=== PATIENT | female | born 1995 | race Caucasian/White ===

== ENCOUNTER 2018-02-02 14:31 | Emergency (ER) | payer OTHER, SELFPAY ==
[2018-02-02 14:38] VITALS: BP 117/69; PULSE 117; RESP 20; TEMP 36.9; O2SAT 99
--- NOTE | 2018-02-02 14:43 | DI.RAD.S_ITS ---
PROCEDURE: XR WRIST LT MIN 3V INDICATIONS: left wrist pain after fall TECHNIQUE: 4 views of the wrist were acquired. COMPARISON: [facility], CR, XR HAND LT MIN 3V, 02/02/2018, 14:25. FINDINGS: Bones: No fractures or dislocations. No suspicious bony lesions. Scaphoid view: No trauma. Soft tissues: No suspicious soft tissue calcifications. IMPRESSION: No trauma found. Incidental load is made of a bone island in the distal ulna, distal subarticular marrow space. No followup necessary. Dictated by: Mark Smart M.D. on 02/02/2018 at 15:01 Approved by: Mark Smart M.D. on 02/02/2018 at 15:02
--- NOTE | 2018-02-02 14:44 | DI.RAD.S_ITS ---
PROCEDURE: XR HAND LT MIN 3V INDICATIONS: left hand pain after fall TECHNIQUE: 3 views of the hand(s) acquired. COMPARISON: [facility], CR, XR WRIST LT MIN 3V, 02/02/2018, 14:25. FINDINGS: Bones: No fractures or dislocations. Carpal bones are normally aligned. No suspicious bony lesions. Soft tissues: No suspicious soft tissue calcifications. IMPRESSION: No trauma found. Distal ulna small bone island incidentally noted. Dictated by: Mark Smart M.D. on 02/02/2018 at 15:02 Approved by: Mark Smart M.D. on 02/02/2018 at 15:02
--- NOTE | 2018-02-02 14:50 | ED_ITS ---
HPI - Extremity Injury (Upper) <Mae Foley PA-C - Last Filed: 02/02/18 18:19> General Chief Complaint: Extremity Injury, Upper Stated Complaint: CRUSH INJURY LEFT HAND Time Seen by Provider: 02/02/18 14:49 Source: patient Mode of arrival: ambulatory History of Present Illness HPI narrative: This 22-year-old female states that she crushed her left hand near the thumb while moving a heavy sofa. It dropped onto the hand which got crushed between the metal leg and floor. She denies other injuries. She states that she can move the thumb, but it is very painful. She is able to move the rest of her fingers and her wrist. She denies any weakness or paresthesia. She does not remember the date of her last tetanus vaccine. Related Data Home Medications Medication Instructions Recorded Confirmed vit-iron fum-folic ac 1 cap PO QDAY #0 09/03/17 [Mynatal] Previous Rx's Medication Instructions Recorded hydrocodone-acetaminophen [Turin] 1 tab PO Q6HP PRN #10 tab 03/30/16 cephalexin [Keflex] 500 mg PO QID #28 cap 08/23/17 metronidazole 500 mg PO Q12H #14 tab 09/03/17 sulfamethoxazole-trimethoprim 1 tab PO BID #14 tab 09/03/17 clindamycin HCl 300 mg PO QID #28 cap 03/18/18 Allergies Allergy/AdvReac Type Severity Reaction Status Date / Time peanut [PEANUT] Allergy Severe ALLERGY TO Verified 03/18/18 12:28 PEANUT BUTTER: HIVES, SOB epinephrine [EPINEPHRINE] Allergy Mild HIVES AT Verified 03/18/18 12:28 EPI-PEN INJECTION AREA darrius [DARRIUS] Allergy Unknown Verified 03/18/18 12:28 tree nut [TREE NUT] Allergy Unknown Verified 03/18/18 12:28 COCONUT Allergy Unknown Uncoded 03/18/18 12:28 TROPICAL FRUITS Allergy Unknown Uncoded 03/18/18 12:28 Review of Systems <Mae Foley PA-C - Last Filed: 02/02/18 18:19> Review of Systems All systems reviewed & are unremarkable except as noted in HPI and below Exam <Mae Foley PA-C - Last Filed: 02/02/18 18:19> Narrative Exam Narrative: GENERAL APPEARANCE: Patient sitting comfortably, in no distress. LUNGS: Clear to auscultation bilaterally. HEART: Rate and rhythm regular without murmur, normal S1 and S2, no S3 or S4. MUSCULOSKELETAL: Left anterior thumb and thenar eminence there is some faint ecchymoses. There is no joint effusion. She is tender over the thenar eminence , and thumb from the MCP to the PIP joint. She is also a little bit tender over the left 2nd and 3rd metacarpals, no tenderness distally. She has full a ROM of the 2nd through 4th fingers with strength intact in all fernandes against resistance. Range of motion of the thumb is limited secondary to tenderness, distal strength appears intact. No tenderness over the wrist joint. NEUROVASCULAR: Finger tips are warm and pink on the left with brisk cap refill and radial and ulnar pulses 2+, sensation is grossly intact Initial Vital Signs Initial Vital Signs: Vital Signs Temperature 98.4 F 02/02/18 14:38 Pulse Rate 117 H 02/02/18 14:38 Respiratory Rate 20 02/02/18 14:38 Blood Pressure 117/69 02/02/18 14:38 Pulse Oximetry 99 02/02/18 14:38 <Juan Carlos Anders MD - Last Filed: 03/19/18 08:14> Initial Vital Signs Initial Vital Signs: Vital Signs Temperature 98.4 F 02/02/18 14:38 Pulse Rate 117 H 02/02/18 14:38 Respiratory Rate 20 02/02/18 14:38 Blood Pressure 117/69 02/02/18 14:38 Pulse Oximetry 99 02/02/18 14:38 Course <Mae Foley PA-C - Last Filed: 02/02/18 18:19> Orders Ordered: Discontinued Medications Acetaminophen (Tylenol) 650 mg PO NOW ONE Stop: 02/02/18 15:03 Last Admin: 02/02/18 15:05 Dose: 650 mg Diphtheria/Tetanus/Acell Pertussis (Adacel) 0.5 ml IM .ONCE ONE Stop: 02/02/18 15:27 Last Admin: 02/02/18 15:27 Dose: 0.5 ml Thumb/wrist immobilizer placed Vital Signs - 8 hr 02/02/18 14:38 Temperature 98.4 F Pulse Rate 117 H Respiratory Rate 20 Blood Pressure 117/69 Pulse Oximetry 99 <Juan Carlos Anders MD - Last Filed: 03/19/18 08:14> Orders Ordered: Discontinued Medications Acetaminophen (Tylenol) 650 mg PO NOW ONE Stop: 02/02/18 15:03 Last Admin: 02/02/18 15:05 Dose: 650 mg Diphtheria/Tetanus/Acell Pertussis (Adacel) 0.5 ml IM .ONCE ONE Stop: 02/02/18 15:27 Last Admin: 02/02/18 15:27 Dose: 0.5 ml Vital Signs - 8 hr 02/02/18 14:38 Temperature 98.4 F Pulse Rate 117 H Respiratory Rate 20 Blood Pressure 117/69 Pulse Oximetry 99 MDM - Extremity Injury (Upper) <Mae Foley PA-C - Last Filed: 02/02/18 18:19> Imaging Data extremity: Radiologist's impression: [address] [address] XRay Report Signed Patient: Roseanne Benson MR#: [id number] : 1995 Acct:[id number] Age/Sex: 22 / F Date of Service: 02/02/18 Loc: ED Accession Number: [id number] Procedure: XR wrist LT min 3V Ordering Provider: Juan Carlos Anders M.D. PROCEDURE: XR WRIST LT MIN 3V INDICATIONS: left wrist pain after fall TECHNIQUE: 4 views of the wrist were acquired. COMPARISON: [facility], [facility], XR HAND LT MIN 3V, 02/02/2018, 14:25. FINDINGS: Bones: No fractures or dislocations. No suspicious bony lesions. Scaphoid view: No trauma. Soft tissues: No suspicious soft tissue calcifications. IMPRESSION: No trauma found. Incidental load is made of a bone island in the distal ulna, distal subarticular marrow space. No followup necessary. Dictated by: Mark Smart M.D. on 02/02/2018 at 15:01 Approved by: Mark Smart M.D. on 02/02/2018 at 15:02 View Report History Print [address] [address] XRay Report Signed Patient: Roseanne Benson MR#: [id number] : 1995 Acct:[id number] Age/Sex: 22 / F Date of Service: 02/02/18 Loc: ED Accession Number: [id number] Procedure: XR hand LT min 3V Ordering Provider: Juan Carlos Anders M.D. PROCEDURE: XR HAND LT MIN 3V INDICATIONS: left hand pain after fall TECHNIQUE: 3 views of the hand(s) acquired. COMPARISON: [facility], CR, XR WRIST LT MIN 3V, 02/02/2018, 14:25. FINDINGS: Bones: No fractures or dislocations. Carpal bones are normally aligned. No suspicious bony lesions. Soft tissues: No suspicious soft tissue calcifications. IMPRESSION: No trauma found. Distal ulna small bone island incidentally noted. Dictated by: Mark Smart M.D. on 02/02/2018 at 15:02 Approved by: Mark Smart M.D. on 02/02/2018 at 15:02 Discharge Plan Departure Patient Disposition: Home, Self-Care Clinical Impression: Crushing injury of hand, left Discharge Date/Time: 02/02/18 15:37 Interventions: ED Discharge Assessment Last Done: 02/02/18 15:30 Instructions: DI for Hand Injury Activity Restrictions/Additional Instructions: Wear the splint 23/03 for now to help rest the sore area, and protect it. You can take it off in a few days and try some gentle range of motion, but keep it on when you are active at least, or if you still have pain. Use Tylenol as needed for pain. You should follow up with your PCP for recheck in the next week as you may need repeat x-rays if pain is not improving. Please return or see your PCP if any new or acutely worsening symptoms Prescriptions: No Action hydrocodone-acetaminophen [Turin] 5 MG/325 MG tablet 1 tab PO Q6HP PRNQty: 10 RF: 0 cephalexin [Keflex] 500 MG capsule 500 mg PO QID Qty: 28 RF: 0 vit-iron fum-folic ac [Mynatal] 1 EACH capsule 1 cap PO QDAY Qty: 0 RF: 0 metronidazole 500 MG tablet 500 mg PO Q12H Qty: 14 RF: 0 sulfamethoxazole-trimethoprim 800 MG/160 MG tablet 1 tab PO BID Qty: 14 RF: 0 clindamycin HCl 300 mg capsule 300 mg PO QID Qty: 28 RF: 0 Referrals: Natali Medrano DO [Non-Staff] - <Juan Carlos Anders MD - Last Filed: 03/19/18 08:14> Sign Out Provider Sign Out Attestation: The PA/LATH TIER functioned independently for the care of this pt, I was available, but not asked to participate in care. I am unable to determine appropriateness of management without personally examining the pt.
[2018-02-02] MEDS: ACETAMINOPHEN 325 MG TABLET 650 MG PO (15:05)
[2018-02-02] MEDS: TET,DIPH,PERTUSS(ACELL),VAC/PF 0.5 ML SYRINGE IM (15:27)
== END 2018-02-02 15:37 | disposition home or self-care (01) ==
PROVIDERS: Emergency Provider Internal Medicine
DX: S67.22XA Crushing injury of left hand, initial encounter (principal); W23.0XXA Caught, crushed, jammed, or pinched between moving objects, initial encounter
CPT/HCPCS: 73110; 73130; 90471; 99282; 99283; 90715

== ENCOUNTER 2018-03-18 12:23 | Emergency (ER) | payer OTHER, SELFPAY ==
[2018-03-18 12:28] VITALS: BP 133/75; PULSE 49; RESP 15; TEMP 36.4; O2SAT 99; BMI 25.0
--- NOTE | 2018-03-18 12:32 | ED_ITS ---
HPI - Extremity Injury (Upper) <KURTIS Miles - Last Filed: 03/18/18 22:40> General Chief Complaint: Extremity Injury, Upper Stated Complaint: LEFT HAND INDEX FINGER SWELLING AND SPREADING. Time Seen by Provider: 03/18/18 12:31 History of Present Illness HPI narrative: 22-year-old female here for complaint of having swelling to her left index finger nail margin for the last couple of days and noticed earlier today that with erythema that is tracking up her dorsal left forearm. She denies any trauma to the area. She denies any purulent drainage. No fevers no chills. She states she does not chew her nails. She does have a history of having a ingrown fingernails in the past. She denies any other concerns or complaints at this time. Related Data Home Medications Medication Instructions Recorded Confirmed vit-iron fum-folic ac 1 cap PO QDAY #0 09/03/17 [Mynatal] Previous Rx's Medication Instructions Recorded hydrocodone-acetaminophen [Clinton] 1 tab PO Q6HP PRN #10 tab 03/30/16 cephalexin [Keflex] 500 mg PO QID #28 cap 08/23/17 metronidazole 500 mg PO Q12H #14 tab 09/03/17 sulfamethoxazole-trimethoprim 1 tab PO BID #14 tab 09/03/17 clindamycin HCl 300 mg PO QID #28 cap 03/18/18 Allergies Allergy/AdvReac Type Severity Reaction Status Date / Time peanut [PEANUT] Allergy Severe ALLERGY TO Verified 03/18/18 12:28 PEANUT BUTTER: HIVES, SOB epinephrine [EPINEPHRINE] Allergy Mild HIVES AT Verified 03/18/18 12:28 EPI-PEN INJECTION AREA darrius [DARRIUS] Allergy Unknown Verified 03/18/18 12:28 tree nut [TREE NUT] Allergy Unknown Verified 03/18/18 12:28 COCONUT Allergy Unknown Uncoded 03/18/18 12:28 TROPICAL FRUITS Allergy Unknown Uncoded 03/18/18 12:28 Review of Systems <KURTIS Miles - Last Filed: 03/18/18 22:40> Constitutional Denies chills, Denies fever(s), Denies lethargy and Denies weakness Eyes Denies change in vision, Denies eye discharge, Denies irritation and Denies loss of vision ENT Ears, Nose, Mouth, and Throat: Denies change in voice, Denies neck pain and Denies sore throat Cardiovascular Denies chest pain, Denies irregular heart rhythm, Denies lightheadedness, Denies palpitations, Denies dyspnea, Denies dyspnea on exertion and Denies orthopnea Respiratory Denies cough, Denies dyspnea, Denies dyspnea on exertion and Denies wheezing Gastrointestinal Gastrointestinal: Denies abdominal pain, Denies change in bowel habits, Denies diarrhea, Denies nausea and Denies vomiting Genitourinary Denies hematuria, Denies flank pain, Denies urinary incontinence and Denies urinary urgency Musculoskeletal Denies neck pain Comments: Swelling and erythema to the left index finger nail margin with erythema tracking up her left hand and left forearm Integumentary/Breasts Denies pruritus, Denies erythema, Denies rash and Denies wounds Neurologic Denies confusion, Denies loss of vision and Denies weakness Psychiatric Denies anxiety, Denies confusion, Denies depression, Denies homicidal ideation and Denies suicidal ideation Endocrine Denies palpitations Hematologic/Lymphatic Denies easy bruising Allergic/Immunologic Denies wheezing Exam <KURTIS Miles - Last Filed: 03/18/18 22:40> Initial Vital Signs Initial Vital Signs: Vital Signs Temperature 97.5 F L 03/18/18 12:28 Pulse Rate 49 L 03/18/18 12:28 Respiratory Rate 15 03/18/18 12:28 Blood Pressure 133/75 H 03/18/18 12:28 Pulse Oximetry 99 03/18/18 12:28 Const General: cooperative and well developed Nutritional Appearance: well nourished Orientation: alert, awake, oriented x3 and not confused [facility] Mouth: oral mucosae normal and moist mucous membranes Eyes Conjunctivae: conjunctivae normal Sclera: sclerae normal Pupils: PERRL EOM: EOM intact bilaterally Resp Effort & Inspection: normal respiratory effort, able to speak in complete sentences, no respiratory distress and no use of accessory muscles Auscultation: clear to auscultation bilaterally, no rales, no rhonchi and no wheezes Cardio Rate: regular rate Rhythm: regular rhythm Heart Sounds: no click, no gallops, no murmurs and no rubs Pulses: normal peripheral pulses Skin General: No jaundice and No petechiae Neuro General: alert, oriented x3, gait normal and no focal motor deficits Speech: speech normal Extrem Other: Swelling and erythema to the distal index finger around the nail margin. Small area of fluctuance is noted to the ulnar aspect nail margin. Patient has erythema that is tracking up her left hand and upper left forearm. Distal sensation is intact. Full range of motion. Distal cap refill less than 2 sec. <Janina Quinteros DO - Last Filed: 03/22/18 05:51> Initial Vital Signs Initial Vital Signs: Vital Signs Temperature 97.5 F L 03/18/18 12:28 Pulse Rate 49 L 03/18/18 12:28 Respiratory Rate 15 03/18/18 12:28 Blood Pressure 133/75 H 03/18/18 12:28 Pulse Oximetry 99 03/18/18 12:28 Procedures <KURTIS Miles - Last Filed: 03/18/18 22:40> Abscess I/D Site: hand Side (if applicable): left Amount of anesthesia used (mL): 2 Technique: needle aspiration Amount of fluid expressed (mL): 0.5 Irrigation: No Packing used?: none Course <KURTIS Miles - Last Filed: 03/18/18 22:40> Vital Signs - 8 hr 03/18/18 12:28 Temperature 97.5 F L Pulse Rate 49 L Respiratory Rate 15 Blood Pressure 133/75 H Pulse Oximetry 99 <Janina Quinteros DO - Last Filed: 03/22/18 05:51> Vital Signs - 8 hr 03/18/18 12:28 Temperature 97.5 F L Pulse Rate 49 L Respiratory Rate 15 Blood Pressure 133/75 H Pulse Oximetry 99 MDM - Extremity Injury (Upper) <KURTIS Miles - Last Filed: 03/18/18 22:40> MDM Narrative Medical decision making narrative: Paronychia to the left index finger with secondary cellulitis. Left index finger local anesthesia provided by digital block. Needle aspiration was completed to fluctuant area along the nail margin with small amount of purulent material expressed. She is covered with clindamycin. Close follow up with primary care provider tomorrow for re- evaluation to ensure is improving. [id number] Tylenol and Motrin as needed for any discomfort. For any worsening symptoms return to the emergency room. Discharge Plan Departure Patient Disposition: Home, Self-Care Clinical Impression: Paronychia of left index finger, Cellulitis of arm, left Discharge Date/Time: 03/18/18 13:54 Interventions: ED Discharge Assessment Last Done: 03/18/18 13:54 Instructions: DI for Cellulitis -- Adult, DI for Paronychia Activity Restrictions/Additional Instructions: Infection to the left nail area was incised with a needle to drain the purulent material. Redness going down the left arm appears as cellulitis. You have been placed on an antibiotic to cover for infection use as directed. You need to follow up with primary care provider tomorrow for re-evaluation to ensure is improving and not worsening. Use [id number] Tylenol and Motrin as needed for any discomfort. For any worsening symptoms return to the emergency room. Prescriptions: New clindamycin HCl 300 mg capsule 300 mg PO QID Qty: 28 RF: 0 No Action hydrocodone-acetaminophen [Clinton] 5 MG/325 MG tablet 1 tab PO Q6HP PRNQty: 10 RF: 0 cephalexin [Keflex] 500 MG capsule 500 mg PO QID Qty: 28 RF: 0 vit-iron fum-folic ac [Mynatal] 1 EACH capsule 1 cap PO QDAY Qty: 0 RF: 0 metronidazole 500 MG tablet 500 mg PO Q12H Qty: 14 RF: 0 sulfamethoxazole-trimethoprim 800 MG/160 MG tablet 1 tab PO BID Qty: 14 RF: 0 Referrals: [facility] [Provider Group] <Janina Quinteros DO - Last Filed: 03/22/18 05:51> Cosign ED Attending Kumar Attestation: I was immediately available in the department for consultation. Documentation has been reviewed. I agree with assessment and plan.
[2018-03-18 13:52] VITALS: BP 138/85; PULSE 45; RESP 15; O2SAT 98
== END 2018-03-18 13:54 | disposition home or self-care (01) ==
PROVIDERS: Emergency Provider Nurse Practitioner Family
DX: L03.114 Cellulitis of left upper limb (principal)
CPT/HCPCS: 10060; 99282

== ENCOUNTER 2018-08-06 10:10 | Emergency (ER) | payer OTHER, SELFPAY ==
[2018-08-06 10:25] VITALS: BP 127/88; PULSE 115; RESP 20; TEMP 37.7; O2SAT 99; BMI 26.9
[2018-08-06 11:00] VITALS: BP 111/77; PULSE 101; RESP 12; O2SAT 99
[2018-08-06 11:16] LABS: Add Manual Diff / Slide Review NO; Basophils Percent Auto 0.2 % (0-2); Eosinophils Percent Auto 0.1 % (2-4); Hematocrit 37.6 % (36-46); Hemoglobin 12.7 g/dL (12.0-16.0); Mean Corpuscular HGB Conc 33.8 % (30-36); Mean Corpuscular Hemoglobin 30.1 PG (26-34); Mean Corpuscular Volume 89.1 fL (80-100); Monocytes Percent Auto 4.8 % (3-14); Neutrophils Absolute Auto 7800 /uL (3000-5900); Neutrophils Percent Auto 87.9 % (50-75); Platelet Count 230 X10^3/uL (150-400); Red Blood Cell Count 4.23 X10^6/uL (4.0-5.2); Red Cell Distribution Width 13.9 % (11.6-14.8); White Blood Cell Count 8.9 X10^3/uL (4.5-11.0)
--- NOTE | 2018-08-06 11:17 | ED_ITS ---
HPI - Chest Pain General Chief Complaint: Chest Pain Stated Complaint: THROAT IS SWELLING SHUT Time Seen by Provider: 08/06/18 10:21 Source: patient Mode of arrival: ambulatory Limitations: no limitations History of Present Illness HPI narrative: 23-year-old nonsmoking female presents with a chief complaint of severe throat pain with difficulty swallowing and fever yesterday. She has some runny nose but denies any cough. She denies nausea, vomiting or diarrhea. She states it feels like strep, which she has had before but has since had a tonsillectomy years ago. She denies any rash nor chest pain, shortness of breath Onset (ago): minute(s) Duration: constant Relieving factors: nothing Related Data Home Medications Medication Instructions Recorded Confirmed cetirizine 10 mg PO DAILY PRN 01/18/19 01/18/19 Previous Rx's Medication Instructions Recorded ondansetron 4 mg PO Q6-8H PRN #10 tab 01/18/19 Allergies Allergy/AdvReac Type Severity Reaction Status Date / Time peanut [PEANUT] Allergy Severe ALLERGY TO Verified 08/06/18 10:31 PEANUT BUTTER: HIVES, SOB epinephrine [EPINEPHRINE] Allergy Mild HIVES AT Verified 08/06/18 10:31 EPI-PEN INJECTION AREA darrius [DARRIUS] Allergy Unknown Verified 08/06/18 10:31 tree nut [TREE NUT] Allergy Unknown Verified 08/06/18 10:31 COCONUT Allergy Unknown Uncoded 08/06/18 10:31 TROPICAL FRUITS Allergy Unknown Uncoded 08/06/18 10:31 Review of Systems Review of Systems All systems reviewed & are unremarkable except as noted in HPI and below Constitutional Reports chills, Reports fever(s), Denies lethargy and Denies weakness Eyes Denies change in vision, Denies eye discharge, Denies irritation and Denies loss of vision ENT Ears, Nose, Mouth, and Throat: Denies change in voice, Denies neck pain and Reports sore throat Cardiovascular Denies chest pain, Denies irregular heart rhythm, Denies lightheadedness, Denies palpitations, Denies dyspnea, Denies dyspnea on exertion and Denies orthopnea Respiratory Denies cough, Denies dyspnea, Denies dyspnea on exertion and Denies wheezing Gastrointestinal Gastrointestinal: Denies abdominal pain, Denies change in bowel habits, Denies diarrhea, Denies nausea and Denies vomiting Genitourinary Denies hematuria, Denies flank pain, Denies urinary incontinence and Denies urinary urgency Musculoskeletal Denies neck pain Integumentary/Breasts Denies pruritus, Denies erythema, Denies rash and Denies wounds Neurologic Denies confusion, Denies loss of vision and Denies weakness Psychiatric Denies anxiety, Denies confusion, Denies depression, Denies homicidal ideation and Denies suicidal ideation Endocrine Denies palpitations Hematologic/Lymphatic Denies easy bruising Allergic/Immunologic Denies wheezing [facility] Medical History (Updated 01/29/19 @ 18:52 by Tripp Hoyos DO) History of pyelonephritis (Resolved) Surgical History (Updated 01/18/19 @ 13:53 by Mojgan Cannon MD) Previous section (Acute) Social History Smoking Status: Former smoker substance use type: does not use Social History Smoking Status: Former smoker substance use type: does not use Exam Narrative Exam Narrative: GENERAL: This is a well-nourished, well-developed patient, in mild distress. HEAD: Atraumatic. Normocephalic. No temporal or scalp tenderness. EYES: Pupils equal round and reactive. Extraocular motions intact. No scleral icterus. No injection or drainage. ENT: Nose without bleeding, purulent drainage or septal hematoma. Mild pharyngeal erythema with post nasal drip, clear. Uvula midline. Airway patent. NECK: Trachea midline. No JVD or lymphadenopathy. Supple, nontender, no meningeal signs. CARDIOVASCULAR: Regular rate and rhythm without murmurs, gallops, or rubs. RESPIRATORY: Clear to auscultation. Breath sounds equal bilaterally. No wheezes, rales, or rhonchi. GASTROINTESTINAL: Abdomen soft, non-tender, nondistended. No hepato- splenomegaly, or palpable masses. No guarding. EXTREMITIES: No clubbing, cyanosis, or edema. No joint tenderness, effusion, or edema noted. BACK: Nontender without deformity or crepitance. No flank tenderness. NEURO: AOx3. SKIN: No rash or erythema. Initial Vital Signs Initial Vital Signs: Vital Signs Temperature 99.8 F H 08/06/18 10:25 Pulse Rate 115 H 08/06/18 10:25 Respiratory Rate 20 08/06/18 10:25 Blood Pressure 127/88 08/06/18 10:25 Pulse Oximetry 99 08/06/18 10:25 Course Orders Ordered: Discontinued Medications Dexamethasone (Decadron) 10 mg IV NOW ONE Stop: 08/06/18 10:30 Last Admin: 08/06/18 11:19 Dose: 10 mg Sodium Chloride (Normal Saline 0.9%) 1,000 mls @ 1,000 mls/hr IV BOLUS ONE Stop: 08/06/18 11:28 Last Infusion: 08/06/18 13:14 Dose: 0 mls/hr Admin: 08/06/18 11:20 Dose: 1,000 mls/hr Ketorolac Tromethamine (Toradol) 15 mg IV NOW ONE Stop: 08/06/18 10:30 Last Admin: 08/06/18 11:19 Dose: 15 mg Vital Signs - 8 hr 08/06/18 10:25 08/06/18 11:00 08/06/18 13:18 Temperature 99.8 F H 99.5 F Pulse Rate 115 H 101 H 105 H Respiratory Rate 20 12 18 Blood Pressure 127/88 Blood Pressure [Left Arm] 116/68 Blood Pressure [Right Arm] 111/77 Pulse Oximetry 99 99 98 MDM - Chest Pain Differential Diagnosis Likely fracture of rib, pneumothorax, stable angina, unstable angina pectoris, atypical chest pain, costochondritis, chest pain and biliary colic Medical Records Data Attestation: I reviewed the patient's medical records. Lab Data Attestation: I reviewed the patient's lab results. Result diagrams: 08/06/18 11:06 08/06/18 11:06 Lab Results 08/06/18 08/06/18 08/06/18 Range/Units 11:06 11:06 11:06 WBC 8.9 (4.5-11.0) X10^3/uL RBC 4.23 (4.0-5.2) X10^6/uL Hgb 12.7 (12.0-16.0) g/dL Hct 37.6 (36-46) % MCV 89.1 (80-100) fL MCH 30.1 (26-34) PG MCHC 33.8 (30-36) % RDW 13.9 (11.6-14.8) % Plt Count 230 (150-400) X10^3/uL Neut % (Auto) 87.9 H (50-75) % Lymph % (Auto) 7.0 L (25-40) % [place] % (Auto) 4.8 (3-14) % Eos % (Auto) 0.1 L (2-4) % Baso % (Auto) 0.2 (0-2) % Neut # (Auto) 7800 H (4272-5381) /uL Sodium 141 (137-145) mmol/L Potassium 3.6 (3.4-5.1) mmol/L Chloride 102 (98-107) mmol/L Carbon Dioxide 24 (22-32) mmol/L BUN 13 (7-17) mg/dL Creatinine 0.60 (0.52-1.04) mg/dL Estimated GFR > 60.0 (>60) mL/min BUN/Creatinine Ratio 21.7 (6-22) Glucose 91 (70-100) mg/dL Lactate (0.7-2.1) mmol/L Calcium 9.1 (8.4-10.2) mg/dL Influenza A & B (PCR) Negative (Negative) Group A Strep (PCR) 08/06/18 08/06/18 Range/Units 11:06 11:06 WBC (4.5-11.0) X10^3/uL RBC (4.0-5.2) X10^6/uL Hgb (12.0-16.0) g/dL Hct (36-46) % MCV (80-100) fL MCH (26-34) PG MCHC (30-36) % RDW (11.6-14.8) % Plt Count (150-400) X10^3/uL Neut % (Auto) (50-75) % Lymph % (Auto) (25-40) % [place] % (Auto) (3-14) % Eos % (Auto) (2-4) % Baso % (Auto) (0-2) % Neut # (Auto) (7404-6838) /uL Sodium (137-145) mmol/L Potassium (3.4-5.1) mmol/L Chloride (98-107) mmol/L Carbon Dioxide (22-32) mmol/L BUN (7-17) mg/dL Creatinine (0.52-1.04) mg/dL Estimated GFR (>60) mL/min BUN/Creatinine Ratio (6-22) Glucose (70-100) mg/dL Lactate 0.9 (0.7-2.1) mmol/L Calcium (8.4-10.2) mg/dL Influenza A & B (PCR) (Negative) Group A Strep (PCR) Negative ECG Data Attestation: I personally reviewed and interpreted this ECG as follows: Prior ECG tracings: not available for review MDM Narrative Medical decision making narrative: Patient has very reassuring physical exam and normal labs. She has been given IV fluids and heart rate is down to 105. She feels much better. She has been given return precautions and verbalized her understanding. Discharge Plan Departure Patient Disposition: Home Clinical Impression: Acute pharyngitis Discharge Date/Time: 08/06/18 13:21 Interventions: ED Discharge Assessment Last Done: 08/06/18 13:22 Instructions: Sore Throat Activity Restrictions/Additional Instructions: *You have been diagnosed with [ acute pharyngitis ] *What to do: *Take medications as directed *Follow up with your primary care provider in 2-3 days, call for an appointment. Let them know you were seen in the Emergency Department and that we ask that you be seen in follow up *Return to ER if you should have any new, worsening or concerning symptoms Prescriptions: No Action cetirizine 10 mg tablet 10 mg PO DAILY PRN (Reason: Allergy Symptoms) RF: 0 ondansetron 4 mg tablet,disintegrating 4 mg PO Q6-8H PRN (Reason: nausea and vomiting) Qty: 10 RF: 0
[2018-08-06] MEDS: KETOROLAC 60 MG/2 ML VIAL 15 MG IV (11:19)
[2018-08-06] MEDS: DEXAMETHASONE 10 MG/ML VIAL IV (11:19)
[2018-08-06] MEDS: SODIUM CHLORIDE 0.9% 1,000 ML 1000 ML IV (11:20)
[2018-08-06 11:28] LABS: BUN Creatinine Ratio 21.7 (6-22); Blood Urea Nitrogen 13 mg/dL (7-17); Calcium 9.1 mg/dL (8.4-10.2); Carbon Dioxide 24 mmol/L (22-32); Chloride 102 mmol/L (98-107); Estimated Glomerular Filt Rate > 60.0 mL/min (>60); Glucose 91 mg/dL (70-100); HEMOLYSIS < 15 (0-50); Lactate (Lactic Acid) 0.9 mmol/L (0.7-2.1); Potassium 3.6 mmol/L (3.4-5.1); Sodium 141 mmol/L (137-145)
[2018-08-06 11:39] LABS: Influenza A and B by PCR Rapid Negative (Negative)
[2018-08-06 11:51] LABS: Strep Grp A by PCR Rapid Negative
[2018-08-06 13:18] VITALS: BP 116/68; PULSE 105; RESP 18; TEMP 37.5; O2SAT 98
== END 2018-08-06 13:21 | disposition home or self-care (01) ==
PROVIDERS: Emergency Provider Emergency Medicine
DX: J02.9 Acute pharyngitis, unspecified (principal); S90.01XA Contusion of right ankle, initial encounter
CPT/HCPCS: 36415; 80048; 83605; 85025; 87040; 87400; 87651; 93005; 93010; 93041; 96361; 96374; 96375; 99283; 99284; J1100; J1885

== ENCOUNTER 2018-08-15 20:23 | Emergency (ER) | payer OTHER, SELFPAY ==
--- NOTE | 2018-08-15 20:28 | ED.LOWEXIN ---
HPI - Extremity Injury (Lower) <UKRTIS Milse - Last Filed: 08/15/18 22:29> General Chief Complaint: Extremity Injury, Lower Stated Complaint: tripped hiking, right ankle injury Time Seen by Provider: 08/15/18 20:28 Source: patient Mode of arrival: ambulatory Limitations: no limitations History of Present Illness HPI Narrative: 23-year-old healthy female that is a nonsmoker for complaint of pain to her right ankle. She states that earlier today she was hiking when she twisted her right ankle on a rock. She reports that she has increased swelling to the lateral aspect of her right ankle. She denies any other injuries. She reports that she has increased pain with ambulation and weight-bearing. She denies any other concerns or complaints at this point. MD complaint: ankle injury Related Data Home Medications Medication Instructions Recorded Confirmed prazosin 2 mg PO QPM 08/06/18 08/06/18 Allergies Allergy/AdvReac Type Severity Reaction Status Date / Time peanut [PEANUT] Allergy Severe ALLERGY TO Verified 08/06/18 10:31 PEANUT BUTTER: HIVES, SOB epinephrine [EPINEPHRINE] Allergy Mild HIVES AT Verified 08/06/18 10:31 EPI-PEN INJECTION AREA darrius [DARRIUS] Allergy Unknown Verified 08/06/18 10:31 tree nut [TREE NUT] Allergy Unknown Verified 08/06/18 10:31 COCONUT Allergy Unknown Uncoded 08/06/18 10:31 TROPICAL FRUITS Allergy Unknown Uncoded 08/06/18 10:31 Review of Systems <KURTIS Miles - Last Filed: 08/15/18 22:29> Constitutional Denies chills, Denies fever(s), Denies lethargy and Denies weakness Eyes Denies change in vision, Denies eye discharge, Denies irritation and Denies loss of vision ENT Ears, Nose, Mouth, and Throat: Denies throat swelling Cardiovascular Denies chest pain, Denies irregular heart rhythm, Denies lightheadedness, Denies palpitations and Denies orthopnea Respiratory Denies wheezing Gastrointestinal Gastrointestinal: Denies abdominal pain, Denies change in bowel habits, Denies diarrhea, Denies nausea and Denies vomiting Genitourinary Denies hematuria, Denies flank pain, Denies urinary incontinence and Denies urinary urgency Musculoskeletal Comments: Right ankle pain and swelling Integumentary/Breasts Denies pruritus, Denies erythema, Denies rash and Denies wounds Neurologic Denies confusion, Denies loss of vision and Denies weakness Psychiatric Denies anxiety, Denies confusion, Denies depression, Denies homicidal ideation and Denies suicidal ideation Endocrine Denies palpitations Hematologic/Lymphatic Denies easy bruising Allergic/Immunologic Denies urticaria, Denies throat swelling and Denies wheezing Exam <KURTIS Miles - Last Filed: 08/15/18 22:29> Initial Vital Signs Initial Vital Signs: Vital Signs Temperature 97.6 F 08/15/18 20:32 Pulse Rate 78 08/15/18 20:32 Respiratory Rate 20 08/15/18 20:32 Blood Pressure 136/86 08/15/18 20:32 Pulse Oximetry 99 08/15/18 20:32 Const General: cooperative and well developed Nutritional Appearance: well nourished Orientation: alert, awake, oriented x3 and not confused HENMT Mouth: oral mucosae normal and moist mucous membranes Eyes Conjunctivae: conjunctivae normal Sclera: sclerae normal Pupils: PERRL EOM: EOM intact bilaterally Resp Effort & Inspection: normal respiratory effort, able to speak in complete sentences, no respiratory distress and no use of accessory muscles Auscultation: clear to auscultation bilaterally, no rales, no rhonchi and no wheezes Cardio Rate: regular rate Rhythm: regular rhythm Heart Sounds: no click, no gallops, no murmurs and no rubs Pulses: normal peripheral pulses Skin General: no rashes or lesions noted, No jaundice and No petechiae Neuro General: alert, oriented x3, gait normal and no focal motor deficits Speech: speech normal Extrem Other: Swelling and tenderness to the right lateral ankle over the malleolus. No open lesions. No deformities. Distal pulses are intact. Distal range of motion is intact distal sensation is intact. <Morales Reed MD - Last Filed: 08/16/18 00:39> Initial Vital Signs Initial Vital Signs: Vital Signs Temperature 97.6 F 08/15/18 20:32 Pulse Rate 78 08/15/18 20:32 Respiratory Rate 20 08/15/18 20:32 Blood Pressure 136/86 08/15/18 20:32 Pulse Oximetry 99 08/15/18 20:32 Course <KURTIS Miles - Last Filed: 08/15/18 22:29> Orders Ordered: ED Orders 08/15/18 20:31 XR ankle RT min 3V Stat Discontinued Medications Ibuprofen (Advil) 800 mg PO NOW ONE Stop: 08/15/18 21:07 Last Admin: 08/15/18 21:16 Dose: 800 mg Vital Signs - 8 hr 08/15/18 20:32 Temperature 97.6 F Pulse Rate 78 Respiratory Rate 20 Blood Pressure 136/86 Pulse Oximetry 99 <Morales Reed MD - Last Filed: 08/16/18 00:39> Orders Ordered: ED Orders 08/15/18 20:31 XR ankle RT min 3V Stat Discontinued Medications Ibuprofen (Advil) 800 mg PO NOW ONE Stop: 08/15/18 21:07 Last Admin: 08/15/18 21:16 Dose: 800 mg Vital Signs - 8 hr 08/15/18 20:32 Temperature 97.6 F Pulse Rate 78 Respiratory Rate 20 Blood Pressure 136/86 Pulse Oximetry 99 MDM - Extremity Injury (Lower) <KURTIS Miles - Last Filed: 08/15/18 22:29> Imaging Data Right ankle : Radiologist's impression: [address] [address] XRay Report Signed Patient: Roseanne Benson [facility]#: [id number] : 1995Acct:[id number] Age/Sex: 23 / FDate of Service: 08/15/18 Loc: ED Accession Number: [id number] Procedure: XR ankle RT min 3V Ordering Provider: Lior Maldonado PROCEDURE: XR ANKLE RT MIN 3V INDICATIONS: rolled ankle lateral pain/swelling TECHNIQUE: 3 views of the ankle were acquired. COMPARISON: [facility], , ANKLE 3 VIEWS RIGHT, 10/09/2017, 19:04. FINDINGS: Bones: No fractures or dislocations. Ankle mortise is normally aligned. No suspicious bony lesions. Soft tissues: No tibiotalar joint effusion. Achilles tendon appears normal. Mild lateral ankle soft tissue swelling is seen. IMPRESSION: Lateral ankle soft tissue swelling. No acute ankle fracture or dislocation. Dictated by: Skyler Das M.D. on 08/15/2018 at 20:49 Approved by: Skyler Das M.D. on 08/15/2018 at 20:50 MDM Narrative Medical decision making narrative: X-ray the right ankle was obtained was negative for any acute fractures. Signs symptoms presents as sprain of the right ankle. She is placed in a gel stirrup splint for comfort and support along with crutches for nonweightbearing. Ice and elevation help with swelling over the next couple of days. [id number] ibuprofen as needed for any discomfort. Rest area. Follow up with primary care provider later this week. For any worsening symptoms return to the emergency room. Nonweightbearing until able to bear weight pain free Discharge Plan Departure Patient Disposition: Home Clinical Impression: Right ankle sprain Discharge Date/Time: 08/15/18 21:20 Interventions: ED Discharge Assessment Last Done: 08/15/18 21:20 Instructions: DI for Ankle Sprain Activity Restrictions/Additional Instructions: X-ray the right ankle was obtained was negative for any acute fractures. Signs /symptoms presents as sprain of the right ankle. You are placed in a gel stirrup splint for comfort and support along with crutches for nonweightbearing use as directed. Ice and elevation help with swelling over the next couple of days. [id number] ibuprofen as needed for any discomfort. Rest area. Follow up with primary care provider later this week. For any worsening symptoms return to the emergency room. Nonweightbearing until able to bear weight pain free Prescriptions: No Action prazosin 1 mg capsule 2 mg PO QPM RF: 0 Referrals: [facility] [Provider Group] <Morales Reed MD - Last Filed: 08/16/18 00:39> Cosign ED Attending Yanelisature Attestation: I was present in the ER at the time this patient's evaluation. I was available for verbal consultation or to see the patient directly if required. I agree with the assessment and treatment plan.
--- NOTE | 2018-08-15 20:31 | DI.RAD.S_ITS ---
PROCEDURE: XR ANKLE RT MIN 3V INDICATIONS: rolled ankle lateral pain/swelling TECHNIQUE: 3 views of the ankle were acquired. COMPARISON: [facility], , ANKLE 3 VIEWS RIGHT, 10/09/2017, 19:04. FINDINGS: Bones: No fractures or dislocations. Ankle mortise is normally aligned. No suspicious bony lesions. Soft tissues: No tibiotalar joint effusion. Achilles tendon appears normal. Mild lateral ankle soft tissue swelling is seen. IMPRESSION: Lateral ankle soft tissue swelling. No acute ankle fracture or dislocation. Dictated by: Skyler Das M.D. on 08/15/2018 at 20:49 Approved by: Skyler Das M.D. on 08/15/2018 at 20:50
[2018-08-15 20:32] VITALS: BP 136/86; PULSE 78; RESP 20; TEMP 36.4; O2SAT 99
[2018-08-15] MEDS: IBUPROFEN 400 MG TABLET 800 MG PO (21:16)
== END 2018-08-15 21:20 | disposition home or self-care (01) ==
PROVIDERS: Emergency Provider Nurse Practitioner Family
DX: M25.571 Pain in right ankle and joints of right foot (principal); W18.43XA Slipping, tripping and stumbling without falling due to stepping from one level to another, initial encounter
CPT/HCPCS: 29540; 73610; 99282; 99283

== ENCOUNTER 2019-01-18 12:27 | Emergency (ER) | payer OTHER, SELFPAY ==
[2019-01-18 12:40] VITALS: BP 109/76; PULSE 95; RESP 116; TEMP 37.6; O2SAT 95
[2019-01-18 13:44] LABS: Add Manual Diff / Slide Review NO; Basophils Absolute Auto 0 /uL (0-100); Basophils Percent Auto 0.3 % (0-2); Eosinophils Absolute Auto 100 /uL (0-450); Eosinophils Percent Auto 0.7 % (2-4); Hematocrit 39.9 % (36-46); Hemoglobin 13.5 g/dL (12.0-16.0); Lymphocytes Absolute Auto 1100 /uL (1100-4500); Lymphocytes Percent Auto 11.9 % (25-40); Mean Corpuscular HGB Conc 33.7 % (30-36); Mean Corpuscular Hemoglobin 30.1 PG (26-34); Mean Corpuscular Volume 89.4 fL (80-100); Monocytes Absolute Auto 600 /uL (0-900); Monocytes Percent Auto 6.8 % (3-14); Neutrophils Absolute Auto 7600 /uL (1500-7000); Neutrophils Percent Auto 80.3 % (50-75); Platelet Count 300 X10^3/uL (150-400); Red Blood Cell Count 4.47 X10^6/uL (4.0-5.2); Red Cell Distribution Width 14.5 % (11.6-14.8); White Blood Cell Count 9.5 X10^3/uL (4.5-11.0)
[2019-01-18 13:51] LABS: INR 1.1 (0.9-1.3)
[2019-01-18 13:53] LABS: PTT Partial Thromboplastin Tim 32 SECONDS (26.4-36.2)
--- NOTE | 2019-01-18 13:54 | ED_ITS ---
HPI - Abdominal Pain General Chief Complaint: Abdominal Pain Stated Complaint: chest pain,stomach pain,vomiting x2 days Time Seen by Provider: 01/18/19 13:33 Source: patient Mode of arrival: ambulatory Limitations: no limitations History of Present Illness HPI narrative: Patient comes emergency department complaining of vomiting x2 days and diarrhea x1 day. Patient states that she has also had upper abdominal pain for the last 2 months and it has been worse with this illness. He patient states she has seen her doctor for the ongoing abdominal pain, but has not yet talked about having a scope done. Patient states she did notice a small blood clot in her vomit the last time she vomited. She states she has vomited about 10 times this morning. Patient denies fevers or chills. No chest pain, cough that is new, or shortness of breath. No dysuria. Patient is not , and states that she had her ?tubes removed? after her last child. No other complaints at this time. Related Data Home Medications Medication Instructions Recorded Confirmed cetirizine 10 mg PO DAILY PRN 01/18/19 01/18/19 Previous Rx's Medication Instructions Recorded ondansetron 4 mg PO Q6-8H PRN #10 tab 01/18/19 Allergies Allergy/AdvReac Type Severity Reaction Status Date / Time peanut [PEANUT] Allergy Severe ALLERGY TO Verified 08/06/18 10:31 PEANUT BUTTER: HIVES, SOB epinephrine [EPINEPHRINE] Allergy Mild HIVES AT Verified 08/06/18 10:31 EPI-PEN INJECTION AREA darrius [DARRIUS] Allergy Unknown Verified 08/06/18 10:31 tree nut [TREE NUT] Allergy Unknown Verified 08/06/18 10:31 COCONUT Allergy Unknown Uncoded 08/06/18 10:31 TROPICAL FRUITS Allergy Unknown Uncoded 08/06/18 10:31 Review of Systems Constitutional Denies chills, Denies fever(s), Denies lethargy and Denies weakness Eyes Denies change in vision, Denies eye discharge, Denies irritation and Denies loss of vision ENT Ears, Nose, Mouth, and Throat: Denies change in voice, Denies neck pain and Denies sore throat Cardiovascular Denies chest pain, Denies irregular heart rhythm, Denies lightheadedness, Denies palpitations, Denies dyspnea, Denies dyspnea on exertion and Denies orthopnea Respiratory Denies cough, Denies dyspnea, Denies dyspnea on exertion and Denies wheezing Gastrointestinal Gastrointestinal: Reports abdominal pain, Denies change in bowel habits, Reports diarrhea, Reports nausea and Reports vomiting Genitourinary Denies hematuria, Denies flank pain, Denies urinary incontinence and Denies urinary urgency Musculoskeletal Denies neck pain Integumentary/Breasts Denies pruritus, Denies erythema, Denies rash and Denies wounds Neurologic Denies confusion, Denies loss of vision and Denies weakness Psychiatric Denies anxiety, Denies confusion, Denies depression, Denies homicidal ideation and Denies suicidal ideation Endocrine Denies palpitations Hematologic/Lymphatic Denies easy bruising Allergic/Immunologic Denies wheezing [facility] Medical History (Updated 01/18/19 @ 17:23 by Mojgan Cannon MD) History of pyelonephritis (Resolved) Surgical History (Updated 01/18/19 @ 13:53 by Mojgan Cannon MD) Previous section (Acute) Social History Smoking Status: Former smoker substance use type: does not use Social History Smoking Status: Former smoker substance use type: does not use Exam Initial Vital Signs Initial Vital Signs: Vital Signs Temperature 99.7 F H 01/18/19 12:40 Pulse Rate 95 H 01/18/19 12:40 Respiratory Rate 116 H 01/18/19 12:40 Blood Pressure 109/76 01/18/19 12:40 Pulse Oximetry 95 01/18/19 12:40 Const General: cooperative and well developed Nutritional Appearance: well nourished Orientation: alert, awake, oriented x3 and not confused [facility] Head: normocephalic and atraumatic Ears: external ears normal and TM's normal bilaterally Nose: external nose normal and No nasal discharge Face and sinus: sinuses nontender, face symmetric, no sinus tenderness and No dry mucous membranes Mouth: oral mucosae normal and moist mucous membranes Teeth and gingiva: dentition normal Throat: tonsils normal and uvula midline Eyes General: appearance normal, both eyes and all related structures Eyelids: eyelids normal Conjunctivae: conjunctivae normal Sclera: sclerae normal Pupils: PERRL EOM: EOM intact bilaterally Neck Neck: normal visual inspection, trachea midline, No lymphadenopathy, No midline deformity and No JVD Lymphatic: No lymphedema Chest Chest: normal inspection of the chest Resp Effort & Inspection: normal respiratory effort, able to speak in complete sentences, no respiratory distress and no use of accessory muscles Auscultation: clear to auscultation bilaterally, no rales, no rhonchi and no wh eezes Cardio Rate: regular rate Rhythm: regular rhythm Heart Sounds: no click, no gallops, no murmurs and no rubs Pulses: normal peripheral pulses GI Inspection: non-distended Palpation: soft, no hepatosplenomegaly, No guarding, No pulsatile mass and tender (Mild, diffuse lower abdominal tenderness) Auscultation: normal bowel sounds Back/Spine/Pelvis Back: No CVA tenderness Cervical Spine: cervical ROM normal and No pain with cervical ROM Thoracic/Lumbar Spine: thoracic and lumbar spine normal to inspection Skin General: no rashes or lesions noted, No jaundice and No petechiae Neuro General: alert, oriented x3, gait normal and no focal motor deficits Speech: speech normal Extrem General: full ROM, no clubbing, cyanosis or edema, no pedal edema and no calf tenderness Psych Appearance: well kempt Mental Status: mental status grossly normal Attitude: cooperative Thought Content: normal and suicidality Judgment: judgment good Course Course Narrative: Patient was worked up labs and treated symptomatically with IV fluids, Zofran, and pain medication. Workup was negative, other than some sludge in the gallbladder without stones, and patient was found to be feeling somewhat better after symptomatic intervention. Results of the workup were discussed with the patient. We have discussed follow-up, as well as the usual indications for return. I suspect this is a viral illness which will be self- limited, and this has been discussed with the patient. We have discussed symptomatic management home. Orders Ordered: Discontinued Medications Al Hydrox/Mg Hydrox/Simethicone 20 ml/ Lidocaine HCl 15 ml 0 ml PO NOW ONE Stop: 01/18/19 17:24 Last Admin: 01/18/19 17:35 Dose: 35 ml Sodium Chloride (Normal Saline 0.9%) 1,000 mls @ 1,000 mls/hr IV BOLUS ONE Stop: 01/18/19 14:53 Last Infusion: 01/18/19 15:14 Dose: 0 mls/hr Admin: 01/18/19 14:05 Dose: 1,000 mls/hr Morphine Sulfate (Morphine) 1 mg IV NOW ONE Stop: 01/18/19 17:24 Last Admin: 01/18/19 17:36 Dose: 1 mg Ondansetron HCl (Zofran) 4 mg IV NOW ONE Stop: 01/18/19 13:55 Last Admin: 01/18/19 14:05 Dose: 4 mg Pantoprazole Sodium (Protonix) 40 mg IV NOW ONE Stop: 01/18/19 13:55 Last Admin: 01/18/19 14:05 Dose: 40 mg Vital Signs - 8 hr 01/18/19 12:40 Temperature 99.7 F H Pulse Rate 95 H Respiratory Rate 116 H Blood Pressure 109/76 Pulse Oximetry 95 MDM - Abdominal Pain Medical Records Attestation: I reviewed the patient's medical records. Lab Data Attestation: I reviewed the patient's lab results. Result diagrams: 01/18/19 13:30 01/18/19 13:30 Lab Results 01/18/19 01/18/19 01/18/19 Range/Units 13:30 13:30 13:30 WBC 9.5 (4.5-11.0) X10^3/uL RBC 4.47 (4.0-5.2) X10^6/uL Hgb 13.5 (12.0-16.0) g/dL Hct 39.9 (36-46) % MCV 89.4 (80-100) fL MCH 30.1 (26-34) PG MCHC 33.7 (30-36) % RDW 14.5 (11.6-14.8) % Plt Count 300 (150-400) X10^3/uL Neut % (Auto) 80.3 H (50-75) % Lymph % (Auto) 11.9 L (25-40) % [place] % (Auto) 6.8 (3-14) % Eos % (Auto) 0.7 L (2-4) % Baso % (Auto) 0.3 (0-2) % Neut # (Auto) 7600 H (8790-3838) /uL Lymph # (Auto) 1100 (1202-1390) /uL [place] # (Auto) 600 (0-900) /uL Eos # (Auto) 100 (0-450) /uL Baso # (Auto) 0 (0-100) /uL PT 13.0 H (10.1-12.7) SECONDS INR 1.1 (0.9-1.3) APTT 32 (26.4-36.2) SECONDS Sodium 141 (137-145) mmol/L Potassium 3.5 (3.4-5.1) mmol/L Chloride 104 (98-107) mmol/L Carbon Dioxide 23 (22-32) mmol/L BUN 18 H (7-17) mg/dL Creatinine 0.60 (0.52-1.04) mg/dL Estimated GFR > 60.0 (>60) mL/min BUN/Creatinine Ratio 30.0 H (6-22) Glucose 94 (70-100) mg/dL Calcium 9.4 (8.4-10.2) mg/dL Total Bilirubin 2.4 H (0.2-1.3) mg/dL AST 30 (14-36) IU/L ALT 27 (9-52) IU/L Alkaline Phosphatase 141 H (38-126) U/L Total Protein 9.1 H (6.3-8.2) g/dL Albumin 5.0 (3.5-5.0) g/dL Globulin 4.1 (1.7-4.1) g/dL Albumin/Globulin Ratio 1.2 (1.0-2.8) Lipase 75 (23-300) U/L Point of care testing: Point of Care Testing Test Results Negative Urine Dip Bedside Urine Glucose Negative Bedside Urine Bilirubin + 1 Bedside Urine Ketone ++ 40 Urine Specific [place] 1.030 Bedside Urine Occult Blood +++ Bedside Urine pH 5.5 Bedside Urine Protein +/- 15 Bedside Urine Urobilinogen +/- 1mg Bedside Urine Nitrite - Negative Bedside Urine Leukocytes - Negative Esterase Imaging Data US - abdomen: Radiologist's impression: PROCEDURE: US ABDOMEN LIMITED INDICATIONS: UPPER ABDOMINAL PAIN RELATED TO EATING, VOMITING TECHNIQUE: Real-time focused scanning was performed of the abdomen, with image documentation. COMPARISON: None. FINDINGS: There are 2 focal hyper echoic areas within the right hepatic lobe measuring 1 cm in maximal dimension, most likely hemangiomas but nonspecific. What appears to be sludge within the dependent portion of the gallbladder lumen is present. Gallbladder wall is 2 mm in thickness, normal. Bile ducts are not distended. IMPRESSION: Mild sludge within the gallbladder lumen, no sign of biliary obstruction or acute cholecystitis. 2 small hyperechoic foci within the right liver lobe are nonspecific but most likely small benign hemangiomas by appearance. Dictated by: Mark Smart M.D. on 01/18/2019 at 17:02 Approved by: Mark Smart M.D. on 01/18/2019 at 17:04 Discharge Plan Departure Patient Disposition: Home Clinical Impression: Gastroenteritis Discharge Date/Time: 01/18/19 18:00 Interventions: ED Discharge Assessment Last Done: 01/18/19 17:59 Instructions: DI for Viral Gastroenteritis -- Adult Activity Restrictions/Additional Instructions: Your labs look good. Your ultrasound shows thickened bile juices in your gallbladder, which could turn into stones at some point. However, at this point, no stones are visualized. There is no evidence of a more serious cause of your symptoms, and the findings point to 1 of the many viruses that are going around at this time. A viral infection must be fought off by your body, and does not respond to antibiotics. Most likely, your symptoms will improve over the next few days. Please take the nausea medication, as needed. Prescriptions: New ondansetron 4 mg tablet,disintegrating 4 mg PO Q6-8H PRN (Reason: nausea and vomiting) Qty: 10 RF: 0 No Action cetirizine 10 mg tablet 10 mg PO DAILY PRN (Reason: Allergy Symptoms) RF: 0 Referrals: [facility] [Provider Group]
[2019-01-18 13:55] LABS: Alanine Aminotransferase 27 IU/L (9-52); Albumin Globulin Ratio 1.2 (1.0-2.8); Alkaline Phosphatase 141 U/L (38-126); Aspartate Aminotransferase 30 IU/L (14-36); Bilirubin Total 2.4 mg/dL (0.2-1.3); Blood Urea Nitrogen 18 mg/dL (7-17); Calcium 9.4 mg/dL (8.4-10.2); Carbon Dioxide 23 mmol/L (22-32); Chloride 104 mmol/L (98-107); Estimated Glomerular Filt Rate > 60.0 mL/min (>60); Globulin 4.1 g/dL (1.7-4.1); Glucose 94 mg/dL (70-100); HEMOLYSIS < 15 (0-50); Lipase 75 U/L (23-300); Potassium 3.5 mmol/L (3.4-5.1); Sodium 141 mmol/L (137-145); Total Protein 9.1 g/dL (6.3-8.2)
[2019-01-18] MEDS: ONDANSETRON 4 MG/2 ML INJ IV (14:05)
[2019-01-18] MEDS: SODIUM CHLORIDE 0.9% 1,000 ML 1000 ML IV (14:05)
[2019-01-18] MEDS: PANTOPRAZOLE 40 MG VIAL IV (14:05)
--- NOTE | 2019-01-18 16:13 | DI.US.S_ITS ---
PROCEDURE: US ABDOMEN LIMITED INDICATIONS: UPPER ABDOMINAL PAIN RELATED TO EATING, VOMITING TECHNIQUE: Real-time focused scanning was performed of the abdomen, with image documentation. COMPARISON: None. FINDINGS: There are 2 focal hyper echoic areas within the right hepatic lobe measuring 1 cm in maximal dimension, most likely hemangiomas but nonspecific. What appears to be sludge within the dependent portion of the gallbladder lumen is present. Gallbladder wall is 2 mm in thickness, normal. Bile ducts are not distended. IMPRESSION: Mild sludge within the gallbladder lumen, no sign of biliary obstruction or acute cholecystitis. 2 small hyperechoic foci within the right liver lobe are nonspecific but most likely small benign hemangiomas by appearance. Dictated by: Mark Smart M.D. on 01/18/2019 at 17:02 Approved by: Mark Smart M.D. on 01/18/2019 at 17:04
[2019-01-18 17:00] VITALS: BP 120/79; PULSE 112; RESP 15; TEMP 37.6; O2SAT 99
[2019-01-18] MEDS: MAG HYDROX/ALUMINUM/SIMETH SUS 20 ML, LIDOCAINE VISCOUS 2% 15 ML PO (17:35)
[2019-01-18] MEDS: MORPHINE 2 MG/ML INJ 1 MG IV (17:36)
[2019-01-18 17:57] VITALS: BP 126/81; PULSE 104; RESP 16; O2SAT 100
== END 2019-01-18 18:00 | disposition home or self-care (01) ==
PROVIDERS: Emergency Provider Emergency Medicine
DX: K52.9 Noninfective gastroenteritis and colitis, unspecified (principal); R07.89 Other chest pain
CPT/HCPCS: 36591; 76705; 80053; 81003; 81025; 83690; 85025; 85610; 85730; 93005; 93010; 96361; 96374; 96375; 99283; 99285; C9113; J2270; J2405

== ENCOUNTER 2019-02-11 21:38 | Emergency (ER) | payer OTHER, SELFPAY ==
[2019-02-11 21:44] VITALS: BP 125/85; PULSE 98; RESP 18; TEMP 36.7; O2SAT 100; BMI 21.4
--- NOTE | 2019-02-11 23:00 | ED.EYEPROB ---
HPI - Eye Problem General Chief complaint: Eye Problems Stated complaint: RIGHT EYE INFECTED Time Seen by Provider: 02/11/19 22:53 Source: patient Mode of arrival: ambulatory Limitations: no limitations History of Present Illness HPI Narrative: Patient is a 23-year-old female who presents with right eye redness. She says it has gross discharge from it. She says her left eye had something like this just recently she said it went away on its own. However this eye has been red for over 1 week and overall not getting any better. She is slightly sensitive to light. She occasionally has some itching. Overall does not have foreign body sensation. She says it swells in the morning and has gross discharged in it in the morning mostly. Related Data Home Medications Medication Instructions Recorded Confirmed cetirizine 10 mg PO DAILY PRN 01/18/19 01/18/19 Previous Rx's Medication Instructions Recorded ondansetron 4 mg PO Q6-8H PRN #10 tab 01/18/19 Allergies Allergy/AdvReac Type Severity Reaction Status Date / Time peanut [PEANUT] Allergy Severe ALLERGY TO Verified 08/06/18 10:31 PEANUT BUTTER: HIVES, SOB epinephrine [EPINEPHRINE] Allergy Mild HIVES AT Verified 08/06/18 10:31 EPI-PEN INJECTION AREA darrius [DARRIUS] Allergy Unknown Verified 08/06/18 10:31 tree nut [TREE NUT] Allergy Unknown Verified 08/06/18 10:31 COCONUT Allergy Unknown Uncoded 08/06/18 10:31 TROPICAL FRUITS Allergy Unknown Uncoded 08/06/18 10:31 Review of Systems Review of Systems GENERAL: Denies chills,fever HEENT: Right eye redness, see HPI Denies throat pain RESPIRATORY: Denies dyspnea, cough, wheezing CARDIOVASCULAR: Denies chest pain, palpitations GASTROINTESTINAL: Denies nausea, vomiting MUSCULOSKELETAL: Denies extremity pain, injury SKIN: No rash, no laceration, no pruritus NEUROLOGIC: Denies weakness, dizziness, headache, numbness 8 point review of systems is negative except for those stated above and HPI [facility] Medical History History of pyelonephritis (Resolved) Surgical History Previous section (Acute) Social History Smoking Status: Former smoker substance use type: does not use Social History Smoking Status: Former smoker substance use type: does not use Exam Initial Vital Signs Initial Vital Signs: Vital Signs Temperature 98.1 F 02/11/19 21:44 Pulse Rate 98 H 02/11/19 21:44 Respiratory Rate 18 02/11/19 21:44 Blood Pressure 125/85 02/11/19 21:44 Pulse Oximetry 100 02/11/19 21:44 GENERAL: Well-appearing, well-nourished and in no acute distress. Right eye erythema conjunctivitis. No surrounding periorbital swelling or edema. Extraocular muscles intact pupils equal round and reactive. Left eye is within normal limits CARDIOVASCULAR: peripheral pulses in tact, cap refill <2 sec RESPIRATORY: No respiratory distress, speaks in full sentences without difficulty EXTREMITIES: Normal range of motion, no clubbing or edema. Neurovascularly intact NEUROLOGICAL: Cranial nerves II through XII grossly intact. Normal gait and speech. SKIN: Warm, dry, no petechiae, no rashes or lesions. Course Orders Ordered: Discontinued Medications Polymyxin/Trimethoprim Sulfate (Polytrim Prepack) 1 bottle [facility] [place] [facility] ONE Stop: 02/11/19 23:09 Last Admin: 02/11/19 23:10 Dose: 2 drop Vital Signs - 8 hr 02/11/19 21:44 02/11/19 23:16 Temperature 98.1 F Pulse Rate 98 H 82 Respiratory Rate 18 18 Blood Pressure 125/85 131/81 Pulse Oximetry 100 99 Discharge Plan Departure Patient Disposition: Home Clinical Impression: Acute conjunctivitis, right eye Qualifiers: Acute conjunctivitis type: bacterial Qualified Code(s): H10.31 - Unspecified acute conjunctivitis, right eye Discharge Date/Time: 02/11/19 23:24 Interventions: ED Discharge Assessment Last Done: 02/11/19 23:16 Instructions: Conjunctivitis Activity Restrictions/Additional Instructions: *You have been diagnosed with right eye conjunctivitis *What to do: May be sensitive to light *Continue to take medications as directed Polytrim 1-2 drops in right eye every 4 hours while awake for 1 week *Follow up with your primary care provider in 2-3 days *Return to ER if you should have increasing surrounding redness, pain, inability to open eye or any new, worsening or concerning symptoms Prescriptions: No Action cetirizine 10 mg tablet 10 mg PO DAILY PRN (Reason: Allergy Symptoms) RF: 0 ondansetron 4 mg tablet,disintegrating 4 mg PO Q6-8H PRN (Reason: nausea and vomiting) Qty: 10 RF: 0
--- NOTE | 2019-02-11 23:04 | ED_ITS ---
HPI - Eye Problem General Chief complaint: Eye Problems Stated complaint: RIGHT EYE INFECTED Time Seen by Provider: 02/11/19 22:53 Source: patient Mode of arrival: ambulatory Limitations: no limitations History of Present Illness HPI Narrative: Patient is a 23-year-old female who presents with right eye redness. She says it has gross discharge from it. She says her left eye had something like this just recently she said it went away on its own. However this eye has been red for over 1 week and overall not getting any better. She is slightly sensitive to light. She occasionally has some itching. Overall d oes not have foreign body sensation. She says it swells in the morning and has gross discharged in it in the morning mostly. Related Data Home Medications Medication Instructions Recorded Confirmed cetirizine 10 mg PO DAILY PRN 01/18/19 01/18/19 Previous Rx's Medication Instructions Recorded ondansetron 4 mg PO Q6-8H PRN #10 tab 01/18/19 Allergies Allergy/AdvReac Type Severity Reaction Status Date / Time peanut [PEANUT] Allergy Severe ALLERGY TO Verified 08/06/18 10:31 PEANUT BUTTER: HIVES, SOB epinephrine [EPINEPHRINE] Allergy Mild HIVES AT Verified 08/06/18 10:31 EPI-PEN INJECTION AREA darrius [DARRIUS] Allergy Unknown Verified 08/06/18 10:31 tree nut [TREE NUT] Allergy Unknown Verified 08/06/18 10:31 COCONUT Allergy Unknown Uncoded 08/06/18 10:31 TROPICAL FRUITS Allergy Unknown Uncoded 08/06/18 10:31 Review of Systems Review of Systems GENERAL: Denies chills,fever HEENT: Right eye redness, see HPI Denies throat pain RESPIRATORY: Denies dyspnea, cough, wheezing CARDIOVASCULAR: Denies chest pain, palpitations GASTROINTESTINAL: Denies nausea, vomiting MUSCULOSKELETAL: Denies extremity pain, injury SKIN: No rash, no laceration, no pruritus NEUROLOGIC: Denies weakness, dizziness, headache, numbness 8 point review of systems is negative except for those stated above and HPI [facility] Medical History History of pyelonephritis (Resolved) Surgical History Previous section (Acute) Social History Smoking Status: Former smoker substance use type: does not use Social History Smoking Status: Former smoker substance use type: does not use Exam Initial Vital Signs Initial Vital Signs: Vital Signs Temperature 98.1 F 02/11/19 21:44 Pulse Rate 98 H 02/11/19 21:44 Respiratory Rate 18 02/11/19 21:44 Blood Pressure 125/85 02/11/19 21:44 Pulse Oximetry 100 02/11/19 21:44 GENERAL: Well-appearing, well-nourished and in no acute distress. Right eye erythema conjunctivitis. No surrounding periorbital swelling or edema. Extraocular muscles intact pupils equal round and reactive. Left eye is within normal limits CARDIOVASCULAR: peripheral pulses in tact, cap refill <2 sec RESPIRATORY: No respiratory distress, speaks in full sentences without difficulty EXTREMITIES: Normal range of motion, no clubbing or edema. Neurovascularly intact NEUROLOGICAL: Cranial nerves II through XII grossly intact. Normal gait and speech. SKIN: Warm, dry, no petechiae, no rashes or lesions. Course Orders Ordered: Discontinued Medications Polymyxin/Trimethoprim Sulfate (Polytrim Prepack) 1 bottle [facility] ONE Stop: 02/11/19 23:09 Last Admin: 02/11/19 23:10 Dose: 2 drop Vital Signs - 8 hr 02/11/19 21:44 02/11/19 23:16 Temperature 98.1 F Pulse Rate 98 H 82 Respiratory Rate 18 18 Blood Pressure 125/85 131/81 Pulse Oximetry 100 99 Discharge Plan Departure Patient Disposition: Home Clinical Impression: Acute conjunctivitis, right eye Qualifiers: Acute conjunctivitis type: bacterial Qualified Code(s): H10.31 - Unspecified acute conjunctivitis, right eye Discharge Date/Time: 02/11/19 23:24 Interventions: ED Discharge Assessment Last Done: 02/11/19 23:16 Instructions: Conjunctivitis Activity Restrictions/Additional Instructions: *You have been diagnosed with right eye conjunctivitis *What to do: May be sensitive to light *Continue to take medications as directed Polytrim 1-2 drops in right eye every 4 hours while awake for 1 week *Follow up with your primary care provider in 2-3 days *Return to ER if you should have increasing surrounding redness, pain, inability to open eye or any new, worsening or concerning symptoms Prescriptions: No Action cetirizine 10 mg tablet 10 mg PO DAILY PRN (Reason: Allergy Symptoms) RF: 0 ondansetron 4 mg tablet,disintegrating 4 mg PO Q6-8H PRN (Reason: nausea and vomiting) Qty: 10 RF: 0
[2019-02-11] MEDS: POLYMY B/TRIMETH OPHTH PREPACK 1 BOTTLE MISC (23:10)
[2019-02-11 23:16] VITALS: BP 131/81; PULSE 82; RESP 18; O2SAT 99
== END 2019-02-11 23:24 | disposition home or self-care (01) ==
PROVIDERS: Emergency Provider Emergency Medicine
DX: H10.31 Unspecified acute conjunctivitis, right eye (principal)
CPT/HCPCS: 99283

== ENCOUNTER 2019-07-15 | Emergency (ER) | payer OTHER, SELFPAY ==
[2019-07-15 00:28] VITALS: BP 104/65; PULSE 122; RESP 16; TEMP 36.6; O2SAT 97; BMI 21.0
[2019-07-15 00:35] LABS: Add Manual Diff / Slide Review NO; Basophils Absolute Auto 0 /uL (0-100); Basophils Percent Auto 0.4 % (0-2); Eosinophils Absolute Auto 0 /uL (0-450); Eosinophils Percent Auto 0.1 % (2-4); Hematocrit 33.4 % (36-46); Hemoglobin 11.6 g/dL (12.0-16.0); Lymphocytes Absolute Auto 2200 /uL (1100-4500); Lymphocytes Percent Auto 31.1 % (25-40); Mean Corpuscular HGB Conc 34.6 % (30-36); Mean Corpuscular Hemoglobin 31.2 PG (26-34); Mean Corpuscular Volume 90.2 fL (80-100); Monocytes Absolute Auto 400 /uL (0-900); Neutrophils Absolute Auto 4400 /uL (1500-7000); Neutrophils Percent Auto 62.4 % (50-75); Platelet Count 252 X10^3/uL (150-400); Red Cell Distribution Width 14.4 % (11.6-14.8)
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
[2019-07-15 00:43] LABS: Blood Urea Nitrogen 6 mg/dL (7-17); Carbon Dioxide 22 mmol/L (22-32); Chloride 105 mmol/L (98-107); Estimated Glomerular Filt Rate > 60.0 mL/min (>60); Glucose 151 mg/dL (70-100); HEMOLYSIS 17 (0-50); Magnesium 1.7 mg/dL (1.6-2.3); Potassium 3.3 mmol/L (3.4-5.1); Sodium 139 mmol/L (137-145)
--- NOTE | 2019-07-15 00:48 | ED_ITS ---
HPI - Seizure General Chief Complaint: Seizure Stated Complaint: multiple seizures bruised all over Time Seen by Provider: 07/15/19 00:20 Source: patient, old records reviewed and other Mode of arrival: Family Vehicle Limitations: no limitations History of Present Illness HPI Narrative: Patient is a 24-year-old female, presenting with shaking. She left Against Medical Advice from [facility] today few hours prior to arrival, after she was thought to be having pseudoseizures. She did not like the way that she was being treated at [place] she has bruising on her arms and she did not know what happened. I have received records from [place] she had an EEG which did not show any epileptic activity. She had a CT of the head on 07/14/2019 which was negative. Because she was leaving against medical advice no MRI was done she would need to be sedated. She continues to have voluntary twitches. Initially patient presented with ongoing seizures to [facility] she states that her service dog noted the seizures and pushed the call button which activated 911. She is not on any anti seizure medications. She was on her way home from [place] today when she started twitching again and her friend brought her here for further evaluation. She otherwise has no complaints. She is noted to be intermittently tachycardic up to 140 is or what 60s. She closes her eyes and shakes but is responsive. complaint: possible seizure Description of Episode: tonic-clonic movement Related Data Home Medications Medication Instructions Recorded Confirmed cetirizine 10 mg PO DAILY PRN 01/18/19 01/18/19 Previous Rx's Medication Instructions Recorded ondansetron 4 mg PO Q6-8H PRN #10 tab 01/18/19 Allergies Allergy/AdvReac Type Severity Reaction Status Date / Time peanut [PEANUT] Allergy Severe ALLERGY TO Verified 08/06/18 10:31 PEANUT BUTTER: HIVES, SOB epinephrine [EPINEPHRINE] Allergy Mild HIVES AT Verified 08/06/18 10:31 EPI-PEN INJECTION AREA darrius [DARRIUS] Allergy Unknown Verified 08/06/18 10:31 tree nut [TREE NUT] Allergy Unknown Verified 08/06/18 10:31 COCONUT Allergy Unknown Uncoded 08/06/18 10:31 TROPICAL FRUITS Allergy Unknown Uncoded 08/06/18 10:31 Review of Systems Review of Systems Narrative: GENERAL: Denies chills, fatigue, malaise, fever, sweats, travel HEENT: Denies sinus pain, ear pain, sore throat, difficulty swallowing, neck pain RESPIRATORY: Denies dyspnea, cough, wheezing, hemoptysis, sputum. CARDIOVASCULAR: Denies chest pain, palpitations, orthopnea, edema GASTROINTESTINAL: Denies nausea, vomiting, abdominal pain, diarrhea, const ipation, melena. : Denies dysuria, frequency, incontinence, hematuria, urinary retention, flank pain. MUSCULOSKELETAL: Denies weakness, joint pain, or bony pain SKIN: No rash, no erythema, no pruritus NEUROLOGIC: See HPI PSYCHIATRIC: No concerning psychosocial issues. 12 point review of systems is negative except for those stated above and HPI Patient History Medical History Anxiety (Acute) Eczema (Acute) History of pyelonephritis (Resolved) PTSD (post-traumatic stress disorder) (Acute) Surgical History Previous section (Acute) Status post appendectomy (Acute) Status post (Acute) Status post tonsillectomy and adenoidectomy (Acute) Social History Smoking Status: Former smoker substance use type: does not use alcohol intake frequency: 0-2 drinks per day Substance Use Type: does not use Exam Initial Vital Signs Initial Vital Signs: Vital Signs Temperature 97.8 F 07/15/19 00:28 Pulse Rate 122 H 07/15/19 00:28 Respiratory Rate 16 07/15/19 00:28 Blood Pressure 104/65 07/15/19 00:28 Pulse Oximetry 97 07/15/19 00:28 GENERAL: Eyes close shaking responding HEENT: Head atraumatic,EOMI, pupils reactive, face symmetric CARDIOVASCULAR: Regular rate and rhythm without murmurs, rubs or gallops. RESPIRATORY: Breath sounds equal bilaterally, no wheezes rales or rhonchi. ABDOMEN: Soft, nontender. Normoactive bowel sounds all 4 quadrants. No guarding or rebound. EXTREMITIES: Normal range of motion, no clubbing or edema. Neurovascularly intact NEUROLOGICAL: Alert and oriented x4. Full body shakes. SKIN: Warm, dry, no laceration, no petechiae, no rashes or lesions. Course Orders Ordered: ED Orders 07/15/19 00:24 Basic Metabolic Panel Stat Complete Blood Count AUTO DIFF Stat Lactate (Lactic Acid) Stat Magnesium Stat Prolactin Stat 07/15/19 00:48 Test Urine Stat Urinalysis and Microscopic Stat Urine Drug Screen, Rapid Stat Discontinued Medications Sodium Chloride (Normal Saline 0.9%) 1,000 mls @ 1,000 mls/hr IV BOLUS ONE Stop: 07/15/19 01:19 Last Infusion: 07/15/19 01:34 Dose: 0 mls/hr Documented by: Admin: 07/15/19 00:58 Dose: 1,000 mls/hr Documented by: NIC Vital Signs Vital signs: Vital Signs - 8 hr 07/15/19 00:28 07/15/19 01:01 Temperature 97.8 F Pulse Rate 122 H 112 H Respiratory Rate 16 18 Blood Pressure 104/65 Blood Pressure [Right Arm] 111/92 H Pulse Oximetry 97 100 MDM - Seizure Lab Data Attestation: I reviewed the patient's lab results. Result diagrams: 07/15/19 00:24 07/15/19 00:24 Labs: Lab Results 07/15/19 07/15/19 07/15/19 Range/Units 00:24 00:24 00:24 WBC 7.0 (4.5-11.0) X10^3/uL RBC 3.70 L (4.0-5.2) X10^6/uL Hgb 11.6 L (12.0-16.0) g/dL Hct 33.4 L (36-46) % MCV 90.2 (80-100) fL MCH 31.2 (26-34) PG MCHC 34.6 (30-36) % RDW 14.4 (11.6-14.8) % Plt Count 252 (150-400) X10^3/uL Neut % (Auto) 62.4 (50-75) % Lymph % (Auto) 31.1 (25-40) % Whitman % (Auto) 6.0 (3-14) % Eos % (Auto) 0.1 L (2-4) % Baso % (Auto) 0.4 (0-2) % Neut # (Auto) 4400 (8437-9524) /uL Lymph # (Auto) 2200 (8917-7869) /uL Whitman # (Auto) 400 (0-900) /uL Eos # (Auto) 0 (0-450) /uL Baso # (Auto) 0 (0-100) /uL Sodium 139 (137-145) mmol/L Potassium 3.3 L (3.4-5.1) mmol/L Chloride 105 (98-107) mmol/L Carbon Dioxide 22 (22-32) mmol/L BUN 6 L (7-17) mg/dL Creatinine 0.60 (0.52-1.04) mg/dL Estimated GFR > 60.0 (>60) mL/min BUN/Creatinine Ratio 10.0 (6-22) Glucose 151 H (70-100) mg/dL Lactate 1.6 (0.7-2.1) mmol/L Calcium 9.0 (8.4-10.2) mg/dL Magnesium 1.7 (1.6-2.3) mg/dL Prolactin 44.0 H (3.0-18.6) ng/mL Urine Color Urine Appearance Urine pH (4.5-8.0) Ur Specific [place] (1.000-1.035) Urine Protein (Negative) Urine Glucose (UA) (Negative) g/dL Urine Ketones (NEGATIVE) Urine Occult Blood (Negative) Urine Nitrate (Negative) Urine Bilirubin (NEGATIVE) Urine Urobilinogen (0.2) E.U./dL Ur Leukocyte Esterase (NEGATIVE) Urine RBC (0-5/HPF) Urine WBC (0-5/HPF) Ur Squamous Epith Cells (0-5/HPF) Urine Bacteria (None) Ur Culture Indicated? Urine Test (Negative) U Morph 300 ng/mL cutoff (Negative) Ur Oxycodone Screen (Negative) Urine Methadone Screen (Negative) Ur Barbiturates Screen (Negative) U Tricyclic Antidepress (Negative) Ur Phencyclidine Scrn (Negative) Ur Amphetamines Screen (Negative) U Methamphetamines Scrn (Negative) Ur MDMA Scrn (Ecstasy) (Negative) U Benzodiazepines Scrn (Negative) Urine Cocaine Screen (Negative) U Marijuana (THC) Screen (Negative) 07/15/19 07/15/19 07/15/19 Range/Units 00:48 00:48 00:48 WBC (4.5-11.0) X10^3/uL RBC (4.0-5.2) X10^6/uL Hgb (12.0-16.0) g/dL Hct (36-46) % MCV (80-100) fL MCH (26-34) PG MCHC (30-36) % RDW (11.6-14.8) % Plt Count (150-400) X10^3/uL Neut % (Auto) (50-75) % Lymph % (Auto) (25-40) % Whitman % (Auto) (3-14) % Eos % (Auto) (2-4) % Baso % (Auto) (0-2) % Neut # (Auto) (9504-1355) /uL Lymph # (Auto) (2992-6562) /uL Whitman # (Auto) (0-900) /uL Eos # (Auto) (0-450) /uL Baso # (Auto) (0-100) /uL Sodium (137-145) mmol/L Potassium (3.4-5.1) mmol/L Chloride (98-107) mmol/L Carbon Dioxide (22-32) mmol/L BUN (7-17) mg/dL Creatinine (0.52-1.04) mg/dL Estimated GFR (>60) mL/min BUN/Creatinine Ratio (6-22) Glucose (70-100) mg/dL Lactate (0.7-2.1) mmol/L Calcium (8.4-10.2) mg/dL Magnesium (1.6-2.3) mg/dL Prolactin (3.0-18.6) ng/mL Urine Color Straw Urine Appearance Slightly cloudy Urine pH 6.5 (4.5-8.0) Ur Specific [place] <=1.005 (1.000-1.035) Urine Protein Negative (Negative) Urine Glucose (UA) Negative (Negative) g/dL Urine Ketones 1+ H (NEGATIVE) Urine Occult Blood 3+ H (Negative) Urine Nitrate Negative (Negative) Urine Bilirubin Negative (NEGATIVE) Urine Urobilinogen 0.2 (0.2) E.U./dL Ur Leukocyte Esterase 2+ H (NEGATIVE) Urine RBC 1-5/hpf (0-5/HPF) Urine WBC 1-5/hpf (0-5/HPF) Ur Squamous Epith Cells 5-10 /hpf H (0-5/HPF) Urine Bacteria Moderate (10-30) H (None) Ur Culture Indicated? Cult not indicated Urine Test Negative (Negative) U Morph 300 ng/mL cutoff Negative (Negative) Ur Oxycodone Screen Negative (Negative) Urine Methadone Screen Negative (Negative) Ur Barbiturates Screen Positive H (Negative) U Tricyclic Antidepress Negative (Negative) Ur Phencyclidine Scrn Negative (Negative) Ur Amphetamines Screen Negative (Negative) U Methamphetamines Scrn Negative (Negative) Ur MDMA Scrn (Ecstasy) Negative (Negative) U Benzodiazepines Scrn Negative (Negative) Urine Cocaine Screen Negative (Negative) U Marijuana (THC) Screen Negative (Negative) Point of Care Testing Glucose POC 133 MDM Narrative Medical decision making narrative: Patient is intermittently tachycardic in the ED she has is voluntary twitches no postictal period. She had an EEG and workup at [place] the last 2 days. EEG is confirmed no epileptic activity. No antiseizure medication was started. She does have slightly elevated prolactin however lactic acid is negative. I do not suspect acute seizure of left CE at this time. I strongly recommended patient follow up with Neurology for any further testing or medications. At this time nothing will be started. She was not given any benzodiazepine in the ED. Discharge Plan Departure Patient Disposition: Home Clinical Impression: Pseudoseizures Discharge Date/Time: 07/15/19 01:34 Instructions: DI for Seizure Disorder -- Adult Activity Restrictions/Additional Instructions: *You have been diagnosed with pseudoseizures *What to do: Recommend that you follow up with a neurologist please call tomorrow *Continue to take medications as directed *Follow up with your primary care provider in 2-3 days *Return to ER if you should have or any new, worsening or concerning symptoms Prescriptions: No Action cetirizine 10 mg tablet 10 mg PO DAILY PRN (Reason: Allergy Symptoms) RF: 0 ondansetron 4 mg tablet,disintegrating 4 mg PO Q6-8H PRN (Reason: nausea and vomiting) Qty: 10 RF: 0
[2019-07-15 00:56] LABS: Pregnancy Test Urine Negative (Negative)
[2019-07-15] MEDS: SODIUM CHLORIDE 0.9% 1,000 ML 1000 ML IV (00:58)
[2019-07-15 00:59] LABS: Bilirubin Urine UA NEGATIVE (NEGATIVE); Glucose Urine UA NEGATIVE (Negative); Ketones Urine UA 1+ (NEGATIVE); Leukocyte Esterase Urine UA 2+ (NEGATIVE); Nitrite Urine UA NEGATIVE (Negative); Occult Blood Urine UA 3+ (Negative); Protein Urine UA NEGATIVE (Negative); Specific Gravity Urine UA <=1.005 (1.000-1.035); Urobilinogen Urine UA 0.2 E.U./dL (0.2)
[2019-07-15 01:01] VITALS: BP 111/92; PULSE 112; RESP 18; O2SAT 100
[2019-07-15 01:05] LABS: UR Morphine/Opiate cutoff 300 Negative (Negative); Ur Creatinine Normal (Normal); Ur Specific Gravity Normal (Normal); Urine Amphetamines Negative (Negative); Urine Barbiturates Positive (Negative); Urine Benzodiazepines Negative (Negative); Urine Cocaine Negative (Negative); Urine MDMA Negative (Negative); Urine Methadone Negative (Negative); Urine Methamphetamines Negative (Negative); Urine Oxycodone Negative (Negative); Urine Phencyclidine Negative (Negative); Urine Tetrahydrocannabinol Negative (Negative); Urine Tricyclic Antidepressant Negative (Negative); Urine pH Normal (Normal)
[2019-07-15 01:06] LABS: Appearance Urine UA Slightly Cloudy; Color Urine UA Straw; pH Urine UA 6.5 (4.5-8.0)
[2019-07-15 01:09] LABS: RBC Urine 1-5/HPF (0-5/HPF); Squamous Epithelial Cell Urine 5-10 /HPF (0-5/HPF); WBC Urine 1-5/HPF (0-5/HPF)
[2019-07-15 01:10] LABS: Bacteria Urine Moderate (10-30); Culture Indicated Urine Cult Not Indicated
[2019-07-15 01:11] LABS: Lactate (Lactic Acid) 1.6 mmol/L (0.7-2.1)
== END 2019-07-15 01:34 | disposition home or self-care (01) ==
PROVIDERS: Emergency Provider Emergency Medicine
DX: F44.5 Conversion disorder with seizures or convulsions (principal); R79.89 Other specified abnormal findings of blood chemistry
CPT/HCPCS: 36415; 80048; 80305; 81001; 81025; 82962; 83605; 83735; 84146; 85025; 93005; 96360; 99283; 99284

== ENCOUNTER 2019-10-02 20:51 | Emergency (ER) | payer OTHER, SELFPAY ==
[2019-10-02 21:00] VITALS: BP 134/85; PULSE 103; RESP 20; TEMP 36.7; O2SAT 100
[2019-10-02 21:30] VITALS: BP 121/74; PULSE 81; RESP 17; O2SAT 97
[2019-10-02 21:33] LABS: Add Manual Diff / Slide Review NO; Basophils Absolute Auto 0 /uL (0-100); Basophils Percent Auto 0.2 % (0-2); Eosinophils Absolute Auto 100 /uL (0-450); Eosinophils Percent Auto 0.6 % (2-4); Hematocrit 35.2 % (36-46); Hemoglobin 12.1 g/dL (12.0-16.0); Lymphocytes Absolute Auto 1800 /uL (1100-4500); Lymphocytes Percent Auto 17.3 % (25-40); Mean Corpuscular HGB Conc 34.4 % (30-36); Mean Corpuscular Hemoglobin 31.4 PG (26-34); Mean Corpuscular Volume 91.1 fL (80-100); Monocytes Absolute Auto 500 /uL (0-900); Neutrophils Absolute Auto 7900 /uL (1500-7000); Neutrophils Percent Auto 76.9 % (50-75); Platelet Count 233 X10^3/uL (150-400); Red Blood Cell Count 3.87 X10^6/uL (4.0-5.2); Red Cell Distribution Width 14.2 % (11.6-14.8); White Blood Cell Count 10.2 X10^3/uL (4.5-11.0)
[2019-10-02 21:35] LABS: BUN Creatinine Ratio 23.3 (6-22); Blood Urea Nitrogen 14 mg/dL (7-17); Calcium 9.3 mg/dL (8.4-10.2); Carbon Dioxide 24 mmol/L (22-32); Chloride 104 mmol/L (98-107); Estimated Glomerular Filt Rate > 60.0 mL/min (>60); Glucose 101 mg/dL (70-100); HEMOLYSIS < 15 (0-50); Magnesium 1.8 mg/dL (1.6-2.3); Potassium 3.4 mmol/L (3.4-5.1); Sodium 139 mmol/L (137-145)
--- NOTE | 2019-10-02 21:38 | PC.NURSE ---
Pt now verbal, states she cannot feel her limbs.
--- NOTE | 2019-10-02 21:43 | PC.NURSE ---
RN reviewing medications. Escitalopram 20 mg, Quantity 30, filled 09/19/20 is empty.
[2019-10-02 21:52] LABS: Prolactin 30.4 ng/mL (3.0-18.6)
[2019-10-02 22:00] VITALS: BP 105/66; PULSE 74; RESP 18; O2SAT 93
--- NOTE | 2019-10-02 22:23 | ED.SEIZURE ---
HPI - Seizure General Chief Complaint: Seizure Stated Complaint: Seziures Time Seen by Provider: 10/02/19 22:22 Source: patient and other (Personal friend) Mode of arrival: EMS Limitations: no limitations History of Present Illness HPI Narrative: The patient arrives by EMS after a friend/neighbor witnessed seizure. The patient has been do with the [facility] 2 times in recent days. She was evaluated for potential seizure. The ER doctor contacted Neurology at [facility]. Recent EEG was consistent with pseudo seizure. However the patient is seen by neurologist in [place], [place]. She is supposed to be taking Keppra 500 mg 2 times daily. She is apparently on antidepressants also. She denies alcohol or drug use. She denies recent illness. She is mumbling responses, but is oriented. On motor testing she initially says she can't move, the initiated voids facial contact with a hand drop. She notably stears maneuvers over her head then back to her side. Her neighbor has been with her all day. She has seen multiple seizures at this time. She initiated 911 call. The patient is a [place] spouse. Her has been deployed for approximately 4 months, due home November 2019. The patient has 4 children at home. Another neighbor is currently watching the children. The patient's friend is significantly concerned about not only the patient, but the welfare of the 4 children of the children at this time. Related Data Home Medications Medication Instructions Recorded Confirmed cetirizine 10 mg PO DAILY PRN 01/18/19 01/18/19 Previous Rx's Medication Instructions Recorded ondansetron 4 mg PO Q6-8H PRN #10 tab 01/18/19 Allergies Allergy/AdvReac Type Severity Reaction Status Date / Time peanut [PEANUT] Allergy Severe ALLERGY TO Verified 08/06/18 10:31 PEANUT BUTTER: HIVES, SOB epinephrine [EPINEPHRINE] Allergy Mild HIVES AT Verified 08/06/18 10:31 EPI-PEN INJECTION AREA darrius [DARRIUS] Allergy Unknown Verified 08/06/18 10:31 tree nut [TREE NUT] Allergy Unknown Verified 08/06/18 10:31 COCONUT Allergy Unknown Uncoded 08/06/18 10:31 TROPICAL FRUITS Allergy Unknown Uncoded 08/06/18 10:31 Review of Systems Review of Systems ROS Unobtainable: All systems reviewed & are unremarkable except as noted in HPI and below Constitutional Constitutional: Denies chills, Denies fever(s), Reports lethargy and Reports weakness Eyes Eyes: Denies blurry vision ENT Ears, Nose, Mouth, and Throat: Denies nasal congestion and Denies neck pain Cardiovascular Cardiovascular: Denies chest pain, Denies irregular heart rhythm, Denies lightheadedness, Denies palpitations, Denies dyspnea and Denies orthopnea Respiratory Respiratory: Denies cough and Denies dyspnea Gastrointestinal Gastrointestinal: Denies abdominal pain and Denies vomiting Genitourinary Genitourinary: Denies dysuria and Denies flank pain Musculoskeletal Musculoskeletal: Denies back pain and Denies neck pain Integumentary/Breasts Skin/Breast: Denies erythema and Denies rash Neurologic Neurologic: Reports behavioral changes, Denies confusion and Reports weakness Comments: Decreased alertness. Psychiatric Psychiatric: Reports behavioral changes and Denies confusion Endocrine Endocrine: Denies palpitations Patient History Medical History Anxiety (Acute) Eczema (Acute) History of pyelonephritis (Resolved) PTSD (post-traumatic stress disorder) (Acute) Social History Smoking Status: Former smoker substance use type: does not use Smoking Status: Former smoker alcohol intake frequency: 0-2 drinks per day Substance Use Type: does not use Exam Initial Vital Signs Initial Vital Signs: Vital Signs Temperature 98.1 F 10/02/19 21:00 Pulse Rate 103 H 10/02/19 21:00 Respiratory Rate 20 10/02/19 21:00 Blood Pressure 134/85 10/02/19 21:00 Pulse Oximetry 100 10/02/19 21:00 Const General: cooperative and No acute distress Nutritional Appearance: well nourished Limitations: behavioral limitations Other: She denies consistent eye contact. She answers questions minimally. She has purposeful appearing occasional jerks, no sustained seizure activity. [facility] Head: normal to inspection, normocephalic and atraumatic Face and sinus: normal facial exam and no erythema Mouth: oral mucosae normal Throat: posterior oropharynx normal Eyes Eyelids: eyelids normal Conjunctivae: conjunctivae normal Sclera: sclerae normal Pupils: PERRL and pupil size on the right 5 and on the left 5 EOM: EOM intact bilaterally Direct ophthalmoscopy: normal light reflex Neck Neck: no meningeal signs and No lymphadenopathy Resp Effort & Inspection: normal respiratory effort and able to speak in complete sentences Auscultation: clear to auscultation bilaterally, no rales, no rhonchi and no wheezes Cardio Rate: regular rate Rhythm: regular rhythm Heart Sounds: S1 normal, S2 normal, no click, no gallops, no murmurs and no rubs Pulses: normal peripheral pulses GI Inspection: non-distended Palpation: soft, no hepatosplenomegaly, No guarding, No pulsatile mass and No tender Auscultation: normal bowel sounds Back/Spine/Pelvis Back: No CVA tenderness Skin General: No pallor Lesions: no lesions Rashes: no rashes Neuro General: oriented x3 Cranial Nerves: CN's II-XI intact bilaterally Motor: muscle tone normal throughout Extrem General: normal to inspection, full ROM, no pedal edema and no calf tenderness Psych Appearance: disheveled Speech and Movement: pressured speech Mood: dysthymic mood Affect: sad and blunted Attitude: cooperative Thought Content: no delusions and no hallucinations Other: The patient has a flat affect, responses are minimal. She has no indication of active seizures. Course Course Course Narrative: The patient has been medically evaluated. Labs are reassuring. She is apparently taking Keppra. She was given a dose of IV Keppra, records from [facility] then reviewed indicating an interaction with her neurologist further suggesting pseudoseizures. I told the patient I agree with the assessments done at [facility] over the last couple days. However the situation raises concern about her 4 young children, 4 children below ages 6 and below. The patient is in the [place], he has been deployed since May. [employer] [place] was contacted. A request was submitted suggesting her 's return from deployment. Her case is #[id number]. I advised the patient that she will be contacted by her 's command, or the [employer] directly. Final decisions will be made by her 's command. She is advised to follow with her local doctor for continuation of care. Orders Ordered: ED Orders 10/02/19 21:09 Basic Metabolic Panel Stat Complete Blood Count AUTO DIFF Stat Magnesium Stat Prolactin Stat 10/02/19 23:43 Urine Microscopic Stat 10/03/19 00:00 Urinalysis Screen (Dip Only) Stat Urine Drug Screen, Rapid Stat Discontinued Medications Sodium Chloride (Normal Saline 0.9%) 1,000 mls @ 1,000 mls/hr IV BOLUS ONE Stop: 10/02/19 23:33 Last Infusion: 10/03/19 00:32 Dose: 0 mls/hr Documented by: Admin: 10/02/19 22:48 Dose: 1,000 mls/hr Documented by: JIA Levetiracetam 1,000 mg/ Sodium (Chloride) 110 mls @ 440 mls/hr IV NOW ONE Stop: 10/02/19 22:35 Last Infusion: 10/02/19 23:35 Dose: 0 mls/hr Documented by: Admin: 10/02/19 23:11 Dose: 440 mls/hr Documented by: JIA Vital Signs Vital signs: Vital Signs - 8 hr 10/02/19 21:00 10/02/19 21:30 10/02/19 22:00 Temperature 98.1 F Pulse Rate 103 H 81 74 Respiratory Rate 20 17 18 Blood Pressure 134/85 Blood Pressure [Left Arm] 121/74 105/66 Pulse Oximetry 100 97 93 10/02/19 22:30 10/02/19 23:00 10/02/19 23:30 Temperature Pulse Rate 78 72 82 Respiratory Rate 13 21 15 Blood Pressure Blood Pressure [Left Arm] 114/74 98/53 L 103/56 L Pulse Oximetry 98 94 98 10/03/19 00:00 10/03/19 00:30 10/03/19 01:23 Temperature Pulse Rate 71 72 73 Respiratory Rate 21 13 17 Blood Pressure Blood Pressure [Left Arm] 107/58 L 105/68 101/63 Pulse Oximetry 96 96 96 10/03/19 02:00 Temperature Pulse Rate 67 Respiratory Rate 12 Blood Pressure Blood Pressure [Left Arm] 111/71 Pulse Oximetry 94 MDM - Seizure Lab Data Result diagrams: 10/02/19 21:09 10/02/19 21:09 Labs: Lab Results 10/02/19 10/02/19 10/02/19 Range/Units 21:09 21:09 23:43 WBC 10.2 (4.5-11.0) X10^3/uL RBC 3.87 L (4.0-5.2) X10^6/uL Hgb 12.1 (12.0-16.0) g/dL Hct 35.2 L (36-46) % MCV 91.1 (80-100) fL MCH 31.4 (26-34) PG MCHC 34.4 (30-36) % RDW 14.2 (11.6-14.8) % Plt Count 233 (150-400) X10^3/uL Neut % (Auto) 76.9 H (50-75) % Lymph % (Auto) 17.3 L (25-40) % [place] % (Auto) 5.0 (3-14) % Eos % (Auto) 0.6 L (2-4) % Baso % (Auto) 0.2 (0-2) % Neut # (Auto) 7900 H (0798-2016) /uL Lymph # (Auto) 1800 (3187-6904) /uL [place] # (Auto) 500 (0-900) /uL Eos # (Auto) 100 (0-450) /uL Baso # (Auto) 0 (0-100) /uL Sodium 139 (137-145) mmol/L Potassium 3.4 (3.4-5.1) mmol/L Chloride 104 (98-107) mmol/L Carbon Dioxide 24 (22-32) mmol/L BUN 14 (7-17) mg/dL Creatinine 0.60 (0.52-1.04) mg/dL Estimated GFR > 60.0 (>60) mL/min BUN/Creatinine Ratio 23.3 H (6-22) Glucose 101 H (70-100) mg/dL Calcium 9.3 (8.4-10.2) mg/dL Magnesium 1.8 (1.6-2.3) mg/dL Prolactin 30.4 H (3.0-18.6) ng/mL Urine Color Yellow Urine Appearance Sl cloudy Urine pH 7.5 (4.5-8.0) Ur Specific [place] 1.015 (1.000-1.035) Urine Protein Trace H (Negative) Urine Glucose (UA) Negative (Negative) g/dL Urine Ketones Negative (NEGATIVE) Urine Occult Blood Negative (Negative) Urine Nitrate Negative (Negative) Urine Bilirubin Negative (NEGATIVE) Urine Urobilinogen 1.0 (0.2) E.U./dL Ur Leukocyte Esterase 1+ H (NEGATIVE) Urine RBC None seen (0-5/HPF) Urine WBC 1-5/hpf (0-5/HPF) Ur Squamous Epith Cells 5-10 /hpf H (0-5/HPF) Amorphous Sediment 3+ Urine Bacteria Many (>30) H (None) Urine Mucus 1+ H (Negative) Urine Yeast 5-10/hpf H (None) Ur Culture Indicated? Cult not indicated Micro UA Comment * U Opiates 300ng/mL cut (Negative) Ur Oxycodone Screen (Negative) Urine Methadone Screen (Negative) Ur Barbiturates Screen (Negative) U Tricyclic Antidepress (Negative) Ur Phencyclidine Scrn (Negative) Ur Amphetamines Screen (Negative) U Methamphetamines Scrn (Negative) Ur MDMA Scrn (Ecstasy) (Negative) U Benzodiazepines Scrn (Negative) Urine Cocaine Screen (Negative) U Marijuana (THC) Screen (Negative) 10/02/19 Range/Units 23:43 WBC (4.5-11.0) X10^3/uL RBC (4.0-5.2) X10^6/uL Hgb (12.0-16.0) g/dL Hct (36-46) % MCV (80-100) fL MCH (26-34) PG MCHC (30-36) % RDW (11.6-14.8) % Plt Count (150-400) X10^3/uL Neut % (Auto) (50-75) % Lymph % (Auto) (25-40) % [place] % (Auto) (3-14) % Eos % (Auto) (2-4) % Baso % (Auto) (0-2) % Neut # (Auto) (1266-6109) /uL Lymph # (Auto) (8714-1329) /uL Pender # (Auto) (0-900) /uL Eos # (Auto) (0-450) /uL Baso # (Auto) (0-100) /uL Sodium (137-145) mmol/L Potassium (3.4-5.1) mmol/L Chloride (98-107) mmol/L Carbon Dioxide (22-32) mmol/L BUN (7-17) mg/dL Creatinine (0.52-1.04) mg/dL Estimated GFR (>60) mL/min BUN/Creatinine Ratio (6-22) Glucose (70-100) mg/dL Calcium (8.4-10.2) mg/dL Magnesium (1.6-2.3) mg/dL Prolactin (3.0-18.6) ng/mL Urine Color Urine Appearance Urine pH (4.5-8.0) Ur Specific [place] (1.000-1.035) Urine Protein (Negative) Urine Glucose (UA) (Negative) g/dL Urine Ketones (NEGATIVE) Urine Occult Blood (Negative) Urine Nitrate (Negative) Urine Bilirubin (NEGATIVE) Urine Urobilinogen (0.2) E.U./dL Ur Leukocyte Esterase (NEGATIVE) Urine RBC (0-5/HPF) Urine WBC (0-5/HPF) Ur Squamous Epith Cells (0-5/HPF) Amorphous Sediment Urine Bacteria (None) Urine Mucus (Negative) Urine Yeast (None) Ur Culture Indicated? Micro UA Comment U Opiates 300ng/mL cut Negative (Negative) Ur Oxycodone Screen Negative (Negative) Urine Methadone Screen Negative (Negative) Ur Barbiturates Screen Negative (Negative) U Tricyclic Antidepress Negative (Negative) Ur Phencyclidine Scrn Negative (Negative) Ur Amphetamines Screen Negative (Negative) U Methamphetamines Scrn Negative (Negative) Ur MDMA Scrn (Ecstasy) Negative (Negative) U Benzodiazepines Scrn Positive H (Negative) Urine Cocaine Screen Negative (Negative) U Marijuana (THC) Screen Negative (Negative) Point of Care Testing Test Results Negative Glucose POC 88 Urine Dip Bedside Urine Glucose Negative Bedside Urine Bilirubin + 1 Bedside Urine Ketone +/- 5 Urine Specific [place] 1.015 Bedside Urine Occult Blood - Negative Bedside Urine pH 8 Bedside Urine Protein +/- 15 Bedside Urine Urobilinogen 1+ 2mg Bedside Urine Nitrite - Negative Bedside Urine Leukocytes +++ 500 Esterase Discharge Plan Departure Patient Disposition: Home Clinical Impression: Dissociative convulsions Discharge Date/Time: 10/03/19 02:30 Instructions: DI for Seizure (Not Epilepsy/Seizure Disorder) Activity Restrictions/Additional Instructions: Continue taking prescribed medications. Follow-up with your local doctor and your neurologist for ongoing guidance. A message has been sent to the [place] suggesting your return early from his current appointment due to family needs at home. Return to the ER as needed. Prescriptions: No Action cetirizine 10 mg tablet 10 mg PO DAILY PRN (Reason: Allergy Symptoms) RF: 0 ondansetron 4 mg tablet,disintegrating 4 mg PO Q6-8H PRN (Reason: nausea and vomiting) Qty: 10 RF: 0 Referrals: Adrianne Nicolas ARNP [Primary Care Provider] -
[2019-10-02 22:30] VITALS: BP 114/74; PULSE 78; RESP 13; O2SAT 98
[2019-10-02] MEDS: SODIUM CHLORIDE 0.9% 1,000 ML 1000 ML IV (22:48)
[2019-10-02 23:00] VITALS: BP 98/53; PULSE 72; RESP 21; O2SAT 94
[2019-10-02] MEDS: levETIRAcetam 1,000 MG in SODIUM CHLORIDE 0.9% 100 ML 440 ML IV (23:11)
[2019-10-02 23:30] VITALS: BP 103/56; PULSE 82; RESP 15; O2SAT 98
[2019-10-03] VITALS: BP 107/58; PULSE 71; RESP 21; O2SAT 96
--- NOTE | 2019-10-03 00:02 | PC.NURSE ---
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 I caller the [employer] [facility] [employer] [facility] and they were able to give me the number to the [place]. They stated that they will get in touch with the husbands chain of command to start the process bring home Pt , the Case # Is [id number].
[2019-10-03 00:14] LABS: Ur Creatinine 50 (Normal); Ur Specific Gravity 1.015 (Normal)
[2019-10-03 00:15] LABS: UR Morphine/Opiate cutoff 300 Negative (Negative); Urine Amphetamines Negative (Negative); Urine Barbiturates Negative (Negative); Urine Benzodiazepines Positive (Negative); Urine Cocaine Negative (Negative); Urine MDMA Negative (Negative); Urine Methadone Negative (Negative); Urine Methamphetamines Negative (Negative); Urine Oxycodone Negative (Negative); Urine Phencyclidine Negative (Negative); Urine Tetrahydrocannabinol Negative (Negative); Urine Tricyclic Antidepressant Negative (Negative)
[2019-10-03 00:21] LABS: Appearance Urine UA SL CLOUDY; Bilirubin Urine UA NEGATIVE (NEGATIVE); Color Urine UA YELLOW; Glucose Urine UA NEGATIVE (Negative); Ketones Urine UA NEGATIVE (NEGATIVE); Leukocyte Esterase Urine UA 1+ (NEGATIVE); Nitrite Urine UA NEGATIVE (Negative); Occult Blood Urine UA NEGATIVE (Negative); Protein Urine UA TRACE (Negative); Specific Gravity Urine UA 1.015 (1.000-1.035)
[2019-10-03 00:22] LABS: pH Urine UA 7.5 (4.5-8.0)
[2019-10-03 00:23] LABS: RBC Urine None Seen (0-5/HPF); Urine pH 7.5 (Normal)
[2019-10-03 00:30] VITALS: BP 105/68; PULSE 72; RESP 13; O2SAT 96
[2019-10-03 00:34] LABS: Bacteria Urine Many (>30); Mucus Urine 1+ (Negative); Squamous Epithelial Cell Urine 5-10 /HPF (0-5/HPF); WBC Urine 1-5/HPF (0-5/HPF)
[2019-10-03 00:35] LABS: Amorphous Sediment Urine 3+
[2019-10-03 00:37] LABS: Culture Indicated Urine Cult Not Indicated
[2019-10-03 01:23] VITALS: BP 101/63; PULSE 73; RESP 17; O2SAT 96
[2019-10-03 02:00] VITALS: BP 111/71; PULSE 67; RESP 12; O2SAT 94
== END 2019-10-03 02:30 | disposition home or self-care (01) ==
PROVIDERS: Emergency Provider Emergency Medicine; PCP Nurse Practitioner
DX: F44.5 Conversion disorder with seizures or convulsions (principal)
CPT/HCPCS: 36415; 80048; 80305; 81003; 81015; 81025; 82962; 83735; 84146; 85025; 93005; 96361; 96365; 99284; J1953

== ENCOUNTER → 2019-10-07 16:36 | Outpatient (CLI) | payer OTHER, SELFPAY ==
--- NOTE | 2019-10-07 | DI.MRI.S_ITS ---
PROCEDURE: MR HEAD/BRAIN WO/W CON INDICATIONS: Conversion disorder with seizures or convulsions TECHNIQUE: Noncontrast axial T1 spin echo, axial T2 fast spin echo, sagittal and axial FLAIR, coronal T2 fast spin echo, axial gradient echo, axial diffusion and ADC through the brain. After the administration of contrast, axial and coronal 3D VIBE or T1 spin echo with fat saturation through the brain. COMPARISON: None. FINDINGS: Image quality: Excellent. CSF Spaces: Basal cisterns are patent. No extra-axial fluid collections. Ventricles are normal in size and shape. Brain: No midline shift. No intracranial bleeds or masses. No abnormal intracranial enhancement. The brainstem appears normal. Diffusion-weighted images demonstrate no acute ischemic insults. No chronic ischemic insults. Normal intravascular flow voids are present. Symmetric, unremarkable appearance of the hippocampal regions. Skull and face: Calvarial marrow is normal in signal. Orbits appear normal. Sphenoid sinus mucosal thickening IMPRESSION: No evidence of acute ischemia. No acute intracranial signal abnormality or enhancement. Sphenoid sinus disease Dictated by: Bharath Heaton M.D. on 10/07/2019 at 17:44 Approved by: Bharath Heaton M.D. on 10/07/2019 at 17:49
== END ==
PROVIDERS: PCP Nurse Practitioner; Referring Provider Psychiatry & Neurology Neurology; Visit Provider Psychiatry & Neurology Neurology
DX: F44.5 Conversion disorder with seizures or convulsions (principal); J32.3 Chronic sphenoidal sinusitis; Z86.69 Personal history of other diseases of the nervous system and sense organs
CPT/HCPCS: 70553

== ENCOUNTER 2019-11-16 17:39 | Emergency (ER) | payer OTHER, SELFPAY ==
[2019-11-16 17:49] VITALS: BP 145/91; PULSE 120; RESP 24; TEMP 38.4; O2SAT 99
--- NOTE | 2019-11-16 17:50 | DI.RAD.S_ITS ---
PROCEDURE: XR CHEST 1V INDICATIONS: Chest pain TECHNIQUE: One view of the chest was acquired. COMPARISON: None. FINDINGS: Surgical changes and devices: None. Lungs and pleura: Lungs are clear. No pleural effusions or pneumothorax. Mediastinum: Mediastinal contours appear normal. Heart size is normal. Bones and chest wall: No suspicious bony lesions. Overlying soft tissues appear unremarkable. IMPRESSION: No acute cardiopulmonary pathology. Dictated by: Skyler Das M.D. on 11/16/2019 at 18:15 Approved by: Skyler Das M.D. on 11/16/2019 at 18:15
--- NOTE | 2019-11-16 18:02 | ED.SEPSIS ---
HPI - Sepsis General Chief Complaint: Shortness of Breath/Dyspnea Mode of arrival: Ambulatory Source: patient Evaluation Sepsis Screen: Possible Sepsis Risk Sepsis Infection Criteria Present: Suspected New Infection Narrative: This is a 24-year-old female who comes to the emergency department complaint of chest pain and shortness of breath and fever that started yesterday. Patient states that she has had a cough she said it has been mildly productive a little bit yellowish. She states she has felt short of breath particularly Jasson day not as bad today. She has had some mild nasal congestion. She has had nausea and post-tussive emesis. She has not had any diarrhea or constipation. She denies any urinary symptoms no dysuria, urgency or frequency. States she has some pain in her foot radiating up her leg. She states she did have a stress fracture in her foot at 1 point but that the pain upper leg is new and started in the last several days. She has a history of asthma, she states epilepsy as well as nonepileptic seizures. Patient states she typically uses a steroid inhaler daily and does not normally use albuterol. Review of Systems Review of Systems ROS Unobtainable: All systems reviewed & are unremarkable except as noted in HPI and below Patient History Medical History Anxiety (Acute) Eczema (Acute) History of pyelonephritis (Resolved) PTSD (post-traumatic stress disorder) (Acute) Surgical History Previous section (Acute) Status post appendectomy (Acute) Status post (Acute) Status post tonsillectomy and adenoidectomy (Acute) Social History Smoking Status: Former smoker substance use type: does not use Smoking Status: Former smoker alcohol intake frequency: 0-2 drinks per day Substance Use Type: does not use Exam Narrative Exam Narrative: GEN: well nourished, well appearing female, alert and oriented x 3, patient appears to be in mild distress. HEENT: Atraumatic, pupils are equal round reactive to light, extraocular movements are intact, nares are clear, voice is clear. HEART: Regular rate and rhythm without murmur, clicks, rubs. Pulses are equal in upper and lower extremities LUNGS:Lungs clear to auscultation, no wheezes, rales, crackles, chest moves symmetrically, no tachypnea accessory muscle use. ABD:bowel sounds normal, soft, non-tender, no guarding, rebound, rigidity, no masses noted, no hepatosplenomegaly :No CVA tenderness MSCL: Non-tender, no muscle atrophy, muscles strength 5/5 upper and lower extremities, full range of motion, normal gait NEURO:CN 2-12 intact, sensation normal SKIN: no erythema, no rash or skin changes. Initial Vital Signs Initial Vital Signs: Vital Signs Temperature 101.2 F H 11/16/19 17:49 Pulse Rate 120 H 11/16/19 17:49 Respiratory Rate 24 11/16/19 17:49 Blood Pressure 145/91 H 11/16/19 17:49 Pulse Oximetry 99 11/16/19 17:49 Scores [employer] coma scale eye opening: Spontaneous [employer] coma scale verbal response: Orientated [employer] coma scale motor response: Obey commands Mauricio coma scale total score: 15 Course Orders Ordered: ED Orders 11/16/19 17:50 XR chest 1V Stat EKG-12 Lead Stat 11/16/19 17:56 Influenza A & B (PCR) Stat 11/16/19 18:15 Complete Blood Count AUTO DIFF Stat Comprehensive Metabolic Panel Stat Lactate (Lactic Acid) Stat Lipase Stat Partial Thromboplastin Time Stat Test Serum,Qual Stat Prothrombin Time INR Stat Troponin I Stat 11/16/19 18:32 US periph venous low extrem lt Stat 11/16/19 19:48 Blood Culture Stat Discontinued Medications Acetaminophen (Tylenol) 975 mg PO NOW ONE Stop: 11/16/19 18:33 Last Admin: 11/16/19 18:38 Dose: 975 mg Documented by: ROSALINDA Sodium Chloride (Normal Saline 0.9%) 1,000 mls @ 1,000 mls/hr IV BOLUS ONE Stop: 11/16/19 19:31 Last Infusion: 11/16/19 20:20 Dose: 0 mls/hr Documented by: Admin: 11/16/19 18:39 Dose: 1,000 mls/hr Documented by: ROSALINDA Sodium Chloride (Normal Saline 0.9%) 1,000 mls @ 1,000 mls/hr IV BOLUS ONE Stop: 11/16/19 20:31 Last Admin: 11/16/19 20:19 Dose: 1,000 mls/hr Documented by: ROSALINDA Oseltamivir Phosphate (Tamiflu) 75 mg PO NOW ONE Stop: 11/16/19 19:33 Last Admin: 11/16/19 19:55 Dose: 75 mg Documented by: IVONNE Vital Signs Vital signs: Vital Signs - 8 hr 11/16/19 17:49 11/16/19 19:02 Temperature 101.2 F H Pulse Rate 120 H 96 H Respiratory Rate 24 Blood Pressure 145/91 H Pulse Oximetry 99 MDM - Sepsis Lab Data Attestation: I reviewed the patient's lab results. Result diagrams: 11/16/19 18:15 11/16/19 18:15 Labs: Lab Results 11/16/19 11/16/19 11/16/19 Range/Units 17:56 18:15 18:15 WBC 5.0 (4.5-11.0) X10^3/uL RBC 4.04 (4.0-5.2) X10^6/uL Hgb 12.4 (12.0-16.0) g/dL Hct 36.5 (36-46) % MCV 90.4 (80-100) fL MCH 30.8 (26-34) PG MCHC 34.1 (30-36) % RDW 14.0 (11.6-14.8) % Plt Count 203 (150-400) X10^3/uL Neut % (Auto) 69.4 (50-75) % Lymph % (Auto) 17.7 L (25-40) % Trigg % (Auto) 11.2 (3-14) % Eos % (Auto) 1.4 L (2-4) % Baso % (Auto) 0.3 (0-2) % Neut # (Auto) 3500 (9436-1822) /uL Lymph # (Auto) 900 L (6239-9882) /uL Trigg # (Auto) 600 (0-900) /uL Eos # (Auto) 100 (0-450) /uL Baso # (Auto) 0 (0-100) /uL PT 14.1 H (10.1-12.7) SECONDS INR 1.2 (0.9-1.3) APTT 36 D (26.4-36.2) SECONDS Sodium (137-145) mmol/L Potassium (3.4-5.1) mmol/L Chloride (98-107) mmol/L Carbon Dioxide (22-32) mmol/L BUN (7-17) mg/dL Creatinine (0.52-1.04) mg/dL Estimated GFR (>60) mL/min BUN/Creatinine Ratio (6-22) Glucose (70-100) mg/dL Lactate (0.7-2.1) mmol/L Calcium (8.4-10.2) mg/dL Total Bilirubin (0.2-1.3) mg/dL AST (14-36) IU/L ALT (<35) IU/L Alkaline Phosphatase (38-126) U/L Troponin I (0.01-0.034) ng/mL Total Protein (6.3-8.2) g/dL Albumin (3.5-5.0) g/dL Globulin (1.7-4.1) g/dL Albumin/Globulin Ratio (1.0-2.8) Lipase (23-300) U/L Serum , Qual (Negative) Influenza A (RT-PCR) Flu a negative (NEGATIVE) Influenza B (RT-PCR) Flu b positive H (NEGATIVE) 11/16/19 11/16/19 11/16/19 Range/Units 18:15 18:15 18:15 WBC (4.5-11.0) X10^3/uL RBC (4.0-5.2) X10^6/uL Hgb (12.0-16.0) g/dL Hct (36-46) % MCV (80-100) fL MCH (26-34) PG MCHC (30-36) % RDW (11.6-14.8) % Plt Count (150-400) X10^3/uL Neut % (Auto) (50-75) % Lymph % (Auto) (25-40) % Trigg % (Auto) (3-14) % Eos % (Auto) (2-4) % Baso % (Auto) (0-2) % Neut # (Auto) (6796-8822) /uL Lymph # (Auto) (5759-4147) /uL Trigg # (Auto) (0-900) /uL Eos # (Auto) (0-450) /uL Baso # (Auto) (0-100) /uL PT (10.1-12.7) SECONDS INR (0.9-1.3) APTT (26.4-36.2) SECONDS Sodium 137 (137-145) mmol/L Potassium 3.7 (3.4-5.1) mmol/L Chloride 104 (98-107) mmol/L Carbon Dioxide 21 L (22-32) mmol/L BUN 14 (7-17) mg/dL Creatinine 0.59 (0.52-1.04) mg/dL Estimated GFR > 60.0 (>60) mL/min BUN/Creatinine Ratio 23.7 H (6-22) Glucose 97 (70-100) mg/dL Lactate 0.8 (0.7-2.1) mmol/L Calcium 9.4 (8.4-10.2) mg/dL Total Bilirubin 2.6 H (0.2-1.3) mg/dL AST 25 (14-36) IU/L ALT 13 (<35) IU/L Alkaline Phosphatase 95 (38-126) U/L Troponin I < 0.012 (0.01-0.034) ng/mL Total Protein 8.6 H (6.3-8.2) g/dL Albumin 4.8 (3.5-5.0) g/dL Globulin 3.8 (1.7-4.1) g/dL Albumin/Globulin Ratio 1.3 (1.0-2.8) Lipase 38 (23-300) U/L Serum , Qual Negative (Negative) Influenza A (RT-PCR) (NEGATIVE) Influenza B (RT-PCR) (NEGATIVE) Imaging Data Chest x-ray: Radiologist's Impression: [address] [address] XRay Report Signed Patient: Roseanne Benson [facility]#: [id number] : 1995Acct:[id number] Age/Sex: 24 / FDate of Service: 11/16/19 Loc: ED Accession Number: [id number] Procedure: XR chest 1V Ordering Provider: Malcom Dillon D.O. PROCEDURE: XR CHEST 1V INDICATIONS: Chest pain TECHNIQUE: One view of the chest was acquired. COMPARISON: None. FINDINGS: Surgical changes and devices: None. Lungs and pleura: Lungs are clear. No pleural effusions or pneumothorax. Mediastinum: Mediastinal contours appear normal. Heart size is normal. Bones and chest wall: No suspicious bony lesions. Overlying soft tissues appear unremarkable. IMPRESSION: No acute cardiopulmonary pathology. Dictated by: Skyler Das M.D. on 11/16/2019 at 18:15 Approved by: Skyler Das M.D. on 11/16/2019 at 18:15 ECG Data Attestation: I personally reviewed and interpreted this ECG as follows: Interpretation: Sinus tachycardia rate of 116 P are 129 QRS 86 and QTC of 410. Patient does have a little bit ST depression in V 4, 5 and 6. No elevation is appreciated. MDM Narrative Medical decision making narrative: Patient comes in needing septic criteria with a fever and a heart rate of 120. Patient was given Tylenol, pulse improved into the 90s. She is influenza positive with a negative chest x-ray. Lab work shows, a CO2 of 21 with a normal lactate. Bilirubin is elevated at 2.6 with negative troponin. Serum is negative. Discuss with patient she is influenza positive started her on Tamiflu she received 2 L for a total 30 cc/kilos bolus. Patient's heart rate is still mildly elevated but she is feeling better at this time and we discussed returned home with isolation precautions. There is a decrease likelihood of coinfection with santizo virus but we did discuss there is potential so she should continue with self isolation with her and her family. Strict return precautions were discussed and patient and her family feel comfortable with this plan. Her shortness of breath improved today and she is not wheezy on exam. We discussed risks versus benefits of Tamiflu and she elects to take this and was also given a prescription for Zofran as she has been nauseated. Discharge Plan Departure Patient Disposition: Home Clinical Impression: Influenza B Instructions: DI for H1N1 Influenza -- Adult Activity Restrictions/Additional Instructions: Follow-up if her symptoms are not improving over the next week or rapidly worsening. Continue Tylenol up to a 1000 mg every 8 hours as needed for fevers. Make sure that you continue with self isolation for the next is 10-14 days. Take Tamiflu twice daily x5 days. Prescription was sent to [facility]. Return to the ER for new or worsening shortness of breath, lightheadedness or passing out, persistent vomiting, black or bloody stools, swelling in her extremities or other new or concerning symptoms Prescriptions: New oseltamivir [Tamiflu] 75 mg capsule 75 mg PO BID 5 Days Qty: 10 RF: 0 ondansetron HCl [Zofran] 4 mg tablet 4 mg PO Q6H PRN (Reason: nausea and vomiting) Qty: 10 RF: 0 No Action cetirizine 10 mg tablet 10 mg PO DAILY PRN (Reason: Allergy Symptoms) RF: 0 ondansetron 4 mg tablet,disintegrating 4 mg PO Q6-8H PRN (Reason: nausea and vomiting) Qty: 10 RF: 0 Referrals: Adrianne Nicolas ARNP [Primary Care Provider] -
[2019-11-16 18:25] LABS: Add Manual Diff / Slide Review NO; Basophils Absolute Auto 0 /uL (0-100); Basophils Percent Auto 0.3 % (0-2); Eosinophils Absolute Auto 100 /uL (0-450); Eosinophils Percent Auto 1.4 % (2-4); Hematocrit 36.5 % (36-46); Hemoglobin 12.4 g/dL (12.0-16.0); Lymphocytes Absolute Auto 900 /uL (1100-4500); Lymphocytes Percent Auto 17.7 % (25-40); Mean Corpuscular HGB Conc 34.1 % (30-36); Mean Corpuscular Hemoglobin 30.8 PG (26-34); Mean Corpuscular Volume 90.4 fL (80-100); Monocytes Absolute Auto 600 /uL (0-900); Monocytes Percent Auto 11.2 % (3-14); Neutrophils Absolute Auto 3500 /uL (1500-7000); Neutrophils Percent Auto 69.4 % (50-75); Platelet Count 203 X10^3/uL (150-400); Red Blood Cell Count 4.04 X10^6/uL (4.0-5.2)
[2019-11-16 18:32] LABS: Influenza A - CEPHEID Flu A NEGATIVE (NEGATIVE); Influenza B - CEPHEID Flu B POSITIVE (NEGATIVE)
--- NOTE | 2019-11-16 18:32 | DI.US.S_ITS ---
PROCEDURE: US PERIPH VENOUS LOW EXTREM LT INDICATIONS: LEFT LEG PAIN TECHNIQUE: Real-time imaging, as well as color and pulse Doppler interrogation, were performed of the lower extremity deep veins from the inguinal ligament to the popliteal fossa. COMPARISON: None. FINDINGS: The common femoral, femoral and popliteal veins are normally compressible, and free of intraluminal thrombus. Color and pulse Doppler demonstrate normal phasic intraluminal flow. There is normal augmentation response to distal compression maneuver. IMPRESSION: No evidence of DVT in visualized left lower extremity veins. Dictated by: Skyler Das M.D. on 11/16/2019 at 20:28 Approved by: Skyler Das M.D. on 11/16/2019 at 20:29
[2019-11-16 18:35] LABS: INR 1.2 (0.9-1.3); Prothrombin Time 14.1 SECONDS (10.1-12.7)
[2019-11-16 18:37] LABS: PTT Partial Thromboplastin Tim 36 SECONDS (26.4-36.2)
[2019-11-16] MEDS: ACETAMINOPHEN 325 MG TABLET 975 MG PO (18:38)
[2019-11-16] MEDS: SODIUM CHLORIDE 0.9% 1,000 ML 1000 ML IV ×2 (18:39→20:19)
[2019-11-16 18:45] LABS: Pregnancy Test Serum,Qual Negative (Negative)
[2019-11-16 18:46] LABS: Alanine Aminotransferase 13 IU/L (<35); Albumin 4.8 g/dL (3.5-5.0); Albumin Globulin Ratio 1.3 (1.0-2.8); Alkaline Phosphatase 95 U/L (38-126); Aspartate Aminotransferase 25 IU/L (14-36); BUN Creatinine Ratio 23.7 (6-22); Bilirubin Total 2.6 mg/dL (0.2-1.3); Blood Urea Nitrogen 14 mg/dL (7-17); Calcium 9.4 mg/dL (8.4-10.2); Carbon Dioxide 21 mmol/L (22-32); Chloride 104 mmol/L (98-107); Estimated Glomerular Filt Rate > 60.0 mL/min (>60); Globulin 3.8 g/dL (1.7-4.1); Glucose 97 mg/dL (70-100); HEMOLYSIS < 15 (0-50); Lipase 38 U/L (23-300); Potassium 3.7 mmol/L (3.4-5.1); Sodium 137 mmol/L (137-145); Total Protein 8.6 g/dL (6.3-8.2)
[2019-11-16 18:58] LABS: Troponin I < 0.012 ng/mL (0.01-0.034)
[2019-11-16 19:02] VITALS: PULSE 96
[2019-11-16 19:44] LABS: Lactate (Lactic Acid) 0.8 mmol/L (0.7-2.1)
[2019-11-16] MEDS: OSELTAMIVIR 75 MG CAPSULE PO (19:55)
[2019-11-16 21:23] VITALS: BP 114/73; PULSE 105; RESP 18; TEMP 37.1; O2SAT 99
[2019-11-18 05:47] LABS: Acinetobacter baumannii Not Detected (Not Detect); Candida albicans Not Detected (Not Detect); Candida glabrata Not Detected (Not Detect); Candida krusei Not Detected (Not Detect); Candida parapsilosis Not Detected (Not Detect); Candida tropicalis Not Detected (Not Detect); E. coli Not Detected (Not Detect); Enterobacter cloacae complex Not Detected (Not Detect); Enterobacteriaceae species Not Detected (Not Detect); Enterococcus species Not Detected (Not Detect); Haemophilus influenzae Not Detected (Not Detect); Listeria monocytogenes Not Detected (Not Detect); Neisseria meningitidis Not Detected (Not Detect); Proteus species Not Detected (Not Detect); Pseudomonas aeruginosa Not Detected (Not Detect); Serratia marcescens Not Detected (Not Detect); Staphylococcus species Not Detected (Not Detect); Streptococcus agalactiae (Gr B Not Detected (Not Detect); Streptococcus pneumonia Not Detected (Not Detect); Streptococcus pyogenes (Gr A) Not Detected (Not Detect); Streptococcus species Not Detected (Not Detect)
== END 2019-11-16 21:23 | disposition home or self-care (01) ==
PROVIDERS: Emergency Medicine; Emergency Provider Emergency Medicine; PCP Nurse Practitioner
DX: J10.1 Influenza due to other identified influenza virus with other respiratory manifestations (principal); R07.9 Chest pain, unspecified
CPT/HCPCS: 36415; 71045; 80053; 83605; 83690; 84484; 84703; 85025; 85610; 85730; 87040; 87150; 87205; 87502; 93005; 93971; 96360; 96361; 99284

== ENCOUNTER 2020-01-31 17:08 | Emergency (ER) | payer OTHER, SELFPAY ==
[2020-01-31 17:12] VITALS: BP 123/77; PULSE 95; RESP 14; TEMP 36.7; O2SAT 100
--- NOTE | 2020-01-31 17:18 | DI.RAD.S_ITS ---
PROCEDURE: XR FOOT LT MIN 3V INDICATIONS: pain top of foot close to 1st toe. atraumatic TECHNIQUE: 3 views of the foot were acquired. COMPARISON: [facility], , FOOT 3V LEFT, 03/30/2016, 3:38. FINDINGS: Bones: No fractures or dislocations. No suspicious bony lesions. Soft tissues: No tibiotalar joint effusion. Achilles tendon appears normal. IMPRESSION: No evidence acute bony abnormality of the left foot Dictated by: Andrew Pretty M.D. on 01/31/2020 at 17:51 Approved by: Andrew Pretty M.D. on 01/31/2020 at 17:52
--- NOTE | 2020-01-31 17:25 | ED.LOWEXIN ---
HPI - Extremity Injury (Lower) General Chief Complaint: Extremity Injury, Lower Stated Complaint: Hurt Left Foot, HX Stress Fracture Time Seen by Provider: 01/31/20 17:10 Source: patient Mode of arrival: Wheelchair Limitations: no limitations History of Present Illness HPI Narrative: 24-year-old female former smoker presents with her significant other in the chief complaint of ongoing left foot pain in the absence of injury over the past 6 days. She has a history of stress fracture in this foot and symptoms are quite similar. She denies numbness, tingling or weakness. She has worsening pain with ambulation and improvement with rest. She denies any specific injury. She denies other symptoms MD complaint: foot injury Onset (ago): day(s) Severity: severe Related Data Home Medications Medication Instructions Recorded Confirmed levetiracetam 750 mg PO BID 01/31/20 01/31/20 Allergies Allergy/AdvReac Type Severity Reaction Status Date / Time peanut [PEANUT] Allergy Severe ALLERGY TO Verified 01/31/20 17:16 PEANUT BUTTER: HIVES, SOB adhesive tape Allergy Mild ITCHING Verified 01/31/20 17:17 epinephrine [EPINEPHRINE] Allergy Mild HIVES AT Verified 01/31/20 17:16 EPI-PEN INJECTION AREA latex Allergy Mild ITCHING Verified 01/31/20 17:17 darrius [DARRIUS] Allergy Unknown Verified 01/31/20 17:16 tree nut [TREE NUT] Allergy Unknown Verified 01/31/20 17:16 COCONUT Allergy Unknown Uncoded 08/06/18 10:31 TROPICAL FRUITS Allergy Unknown Uncoded 08/06/18 10:31 Review of Systems Constitutional Constitutional: Denies chills, Denies fatigue, Denies fever(s), Denies frequent falls, Denies lethargy and Denies weakness Eyes Eyes: Denies change in vision, Denies eye discharge, Denies irritation and Denies loss of vision ENT Ears, Nose, Mouth, and Throat: Denies change in voice, Denies dizziness, Denies neck pain, Denies sore throat and Denies throat swelling Cardiovascular Cardiovascular: Denies chest pain, Denies irregular heart rhythm, Denies lightheadedness, Denies palpitations, Denies dyspnea, Denies dyspnea on exertion and Denies orthopnea Respiratory Respiratory: Denies cough, Denies dyspnea, Denies dyspnea on exertion and Denies wheezing Gastrointestinal Gastrointestinal: Denies abdominal pain, Denies change in bowel habits, Denies diarrhea, Denies nausea and Denies vomiting Genitourinary Genitourinary: Denies hematuria, Denies flank pain, Denies urinary incontinence and Denies urinary urgency Musculoskeletal Musculoskeletal: Reports abnormal gait, Denies back pain, Denies muscle weakness, Denies neck pain, Denies numbness and Denies tingling Integumentary/Breasts Skin/Breast: Denies pruritus, Denies erythema, Denies rash and Denies wounds Neurologic Neurologic: Reports abnormal gait, Denies behavioral changes, Denies confusion, Denies dizziness, Denies frequent falls, Denies loss of vision, Denies numbness, Denies tingling and Denies weakness Psychiatric Psychiatric: Denies anxiety, Denies behavioral changes, Denies confusion, Denies depression, Denies homicidal ideation and Denies suicidal ideation Endocrine Endocrine: Denies fatigue, Denies flushing and Denies palpitations Hematologic/Lymphatic Hematologic/Lymphatic: Denies easy bruising Allergic/Immunologic Allergic/Immunologic: Denies urticaria, Denies throat swelling and Denies wheezing Patient History Medical History Anxiety (Acute) Eczema (Acute) History of pyelonephritis (Resolved) PTSD (post-traumatic stress disorder) (Acute) Surgical History Previous section (Acute) Status post appendectomy (Acute) Status post (Acute) Status post tonsillectomy and adenoidectomy (Acute) Social History Smoking Status: Former smoker substance use type: does not use Smoking Status: Former smoker alcohol intake frequency: 0-2 drinks per day Substance Use Type: does not use Exam Narrative Exam Narrative: GEN: AOx3 and in mild distress EYES: Pupils are equal, round, and reactive to light and accommodation. Extraoccular muscles are intact bilaterally. There is no subconjunctival hemorrhage or exudate. CHEST: Lungs are clear to auscultation bilaterally and free of wheezes, rales, or rhonchi. Heart rate is regular rhythm, there are no murmurs, clicks, rubs, or gallops. There is no chest wall tenderness. ABD: Abdomen is soft and nontender. There is no guarding or rebound. Bowel sounds are normal in all 4 quadrants. There is no mass or organomegaly. EXT: dorsum of left waterproof coating machine tender to palp with minimal swelling. no deformity SKIN: Warm, pink, and dry. No erythema or rash Initial Vital Signs Initial Vital Signs: Vital Signs Temperature 98.1 F 01/31/20 17:12 Pulse Rate 95 H 01/31/20 17:12 Respiratory Rate 14 01/31/20 17:12 Blood Pressure 123/77 01/31/20 17:12 Pulse Oximetry 100 01/31/20 17:12 Course Orders Ordered: ED Orders 01/31/20 17:18 XR foot LT min 3V Stat Vital Signs Vital signs: Vital Signs - 8 hr 01/31/20 17:12 Temperature 98.1 F Pulse Rate 95 H Respiratory Rate 14 Blood Pressure 123/77 Pulse Oximetry 100 Discharge Plan Departure Patient Disposition: Home Clinical Impression: Left foot pain Discharge Date/Time: 01/31/20 18:18 Instructions: DI for Foot Pain Activity Restrictions/Additional Instructions: *You have been diagnosed with [left foot pain, possible stress fracture] *What to do: *Take medications as directed *Follow up with your primary care provider in 2-3 days, call for an appointment. Let them know you were seen in the Emergency Department and that we ask that you be seen in follow up *Return to ER if you should have any new, worsening or concerning symptoms Prescriptions: No Action levetiracetam 500 mg tablet 750 mg PO BID RF: 0 Referrals: Adrianne Nicolas ARNP [Primary Care Provider] - Dillan Cuevas MD [Physician] -
== END 2020-01-31 18:18 | disposition home or self-care (01) ==
PROVIDERS: Emergency Provider Emergency Medicine; PCP Nurse Practitioner
DX: S99.922A Unspecified injury of left foot, initial encounter (principal); M79.672 Pain in left foot
CPT/HCPCS: 73630; 99283

== ENCOUNTER → 2020-03-30 18:41 | Outpatient (CLI) | payer OTHER, SELFPAY ==
--- NOTE | 2020-03-30 18:43 | DI.MRI.S_ITS ---
PROCEDURE: MR ANKLE LT WO CON INDICATIONS: PAIN LEFT FOOT TECHNIQUE: Noncontrast sagittal T1 spin echo and T2 fast spin echo with fat saturation, axial proton density fast spin echo and T2 fast spin echo with fat saturation, coronal T1 spin echo and T2 fast spin echo with fat saturation through the ankle/hindfoot. COMPARISON: [facility], [place], XR FOOT 3 VIEWS WEIGHT BEARING LEFT, 03/20/2020, 14:27. FINDINGS: Image quality: Excellent. Bones and joints: No bone marrow contusions or fractures. No hindfoot coalitions. No osteochondral injuries of the talar dome. No pathologic joint effusions. Medial structures: Posterior tibialis intact. Flexor digitorum longus intact. Flexor hallucis longus tendon intact. The posterior tibial neurovascular bundle appears normal within the tarsal tunnel, without extrinsic mass effect. Deltoid ligament complex appears intact. The spring ligament appears intact. Lateral structures: Anterior talofibular ligament intact. Calcaneofibular ligament intact. Posterior talofibular ligament intact. Anterior and posterior tibiofibular ligaments appear intact, as is the intermalleolar ligament. Tibiofibular syndesmosis is normal in width at 2 mm or less. Peroneus longus and brevis tendons demonstrate normal location and morphology. Bony peroneal tubercle and retrotrochlear prominence are normal in size. Sinus tarsi demonstrates normal fatty signal, without edema, fibrosis, or cyst formation. Anterior structures: Tibialis anterior intact. Extensor hallucis longus intact. Extensor digitorum longus tendon intact. Dorsal talonavicular ligament appears intact. Posterior and plantar structures: Achilles tendon is intact. Medial band plantar fasciitis. Adjacent reactive soft tissue and marrow edema. No abductor digiti quinti muscle atrophy to suggest Brothers neuropathy. IMPRESSION: Medial band plantar fasciitis. Adjacent reactive soft tissue and marrow edema. Dictated by: Bharath Heaton M.D. on 04/02/2020 at 8:40 Approved by: Bharath Heaton M.D. on 04/02/2020 at 9:03
== END ==
PROVIDERS: PCP Nurse Practitioner; Referring Provider Orthopaedic Surgery Foot and Ankle Surgery; Visit Provider Orthopaedic Surgery Foot and Ankle Surgery
DX: M79.672 Pain in left foot (principal); M72.2 Plantar fascial fibromatosis
CPT/HCPCS: 73721

== ENCOUNTER 2020-03-31 18:23 | Emergency (ER) | payer OTHER, SELFPAY ==
[2020-03-31 18:38] VITALS: BP 141/92; PULSE 98; RESP 98; TEMP 36.6; O2SAT 98
[2020-03-31 19:26] LABS: Bacteria Urine Many (>30); RBC Urine 1-5/HPF (0-5/HPF); Squamous Epithelial Cell Urine 1-5 /HPF (0-5/HPF); WBC Urine 30-100/HPF (0-5/HPF)
[2020-03-31 19:27] LABS: Culture Indicated Urine Specimen Cultured
[2020-03-31] MEDS: cephALEXin 250 MG PREPACK 1 BOTTLE MISC (20:41)
[2020-03-31] MEDS: ONDANSETRON 4 MG ODT PREPACK 1 BOTTLE MISC (20:41)
[2020-03-31] MEDS: HYDROCODONE/ACET 5/325 PREPACK 1 BOTTLE MISC (20:41)
--- NOTE | 2020-04-01 01:38 | ED_ITS ---
HPI - Female Genitourinary General Chief complaint: Urogenital-Female Stated complaint: thinks kidney infection Time Seen by Provider: 03/31/20 18:24 Source: patient Mode of arrival: Ambulatory Limitations: no limitations History of Present Illness HPI Narrative: 24F former smoker presents with the chief complaint of suprapubic tenderness and some lowback pain over the course of the day. She denies classic UTI symptoms such as dysuria, frequency, or urgency. She denies N/V/D. She's had no vaginal bleeding or discharge. She has had UTIs and pyelonephritis before and states this feels similar. MD Complaint: dysuria and UTI Onset (ago): hour(s) Location: suprapubic Severity: mild Quality: Cramping Duration: constant Relieving factors: none Exacerbating factors: none Patient : No Associated symptoms: denies other symptoms Related Data Home Medications Medication Instructions Recorded Confirmed levetiracetam 750 mg PO BID 01/31/20 03/31/20 albuterol sulfate 2 inh INHALATION Q6HR PRN 03/31/20 03/31/20 mirtazapine 15 mg PO BEDTIME PRN 03/31/20 03/31/20 prazosin 1 mg PO BEDTIME 03/31/20 03/31/20 venlafaxine 37.5 mg PO DAILY 03/31/20 03/31/20 Previous Rx's Medication Instructions Recorded cephalexin [Keflex] 500 mg PO QID 7 Days #28 cap 03/31/20 hydrocodone-acetaminophen 1 tab PO Q4-6H PRN #10 tab 03/31/20 ketorolac 10 mg PO Q6H PRN #14 tab 03/31/20 ondansetron 4 mg PO TID-QID PRN #10 tab 03/31/20 Allergies Allergy/AdvReac Type Severity Reaction Status Date / Time peanut [PEANUT] Allergy Severe ALLERGY TO Verified 03/31/20 18:42 PEANUT BUTTER: HIVES, SOB adhesive tape Allergy Mild ITCHING Verified 03/31/20 18:42 epinephrine [EPINEPHRINE] Allergy Mild HIVES AT Verified 03/31/20 18:42 EPI-PEN INJECTION AREA latex Allergy Mild ITCHING Verified 03/31/20 18:42 darrius [DARRIUS] Allergy Unknown Verified 03/31/20 18:42 tree nut [TREE NUT] Allergy Unknown Verified 03/31/20 18:42 COCONUT Allergy Unknown Uncoded 08/06/18 10:31 TROPICAL FRUITS Allergy Unknown Uncoded 08/06/18 10:31 Review of Systems Constitutional Constitutional: Denies chills, Denies fatigue, Denies fever(s), Denies frequent falls, Denies lethargy and Denies weakness Eyes Eyes: Denies change in vision, Denies eye discharge, Denies irritation and Denies loss of vision ENT Ears, Nose, Mouth, and Throat: Denies change in voice, Denies dizziness, Denies neck pain, Denies sore throat and Denies throat swelling Cardiovascular Cardiovascular: Denies chest pain, Denies irregular heart rhythm, Denies lightheadedness, Denies palpitations, Denies dyspnea, Denies dyspnea on exertion and Denies orthopnea Respiratory Respiratory: Denies cough, Denies dyspnea, Denies dyspnea on exertion and Denies wheezing Gastrointestinal Gastrointestinal: Denies abdominal pain, Denies change in bowel habits, Denies diarrhea, Denies nausea and Denies vomiting Genitourinary Comments: suprapubic and low back discomfort Musculoskeletal Musculoskeletal: Denies neck pain and Denies numbness Integumentary/Breasts Skin/Breast: Denies pruritus, Denies erythema, Denies rash and Denies wounds Neurologic Neurologic: Denies behavioral changes, Denies confusion, Denies dizziness, Denies frequent falls, Denies loss of vision, Denies numbness and Denies weakness Psychiatric Psychiatric: Denies anxiety, Denies behavioral changes, Denies confusion, Denies depression, Denies homicidal ideation and Denies suicidal ideation Endocrine Endocrine: Denies fatigue, Denies flushing and Denies palpitations Hematologic/Lymphatic Hematologic/Lymphatic: Denies easy bruising Allergic/Immunologic Allergic/Immunologic: Denies urticaria, Denies throat swelling and Denies wheezing Patient History Medical History Anxiety (Acute) Eczema (Acute) History of pyelonephritis (Resolved) PTSD (post-traumatic stress disorder) (Acute) Surgical History Previous section (Acute) Status post appendectomy (Acute) Status post (Acute) Status post tonsillectomy and adenoidectomy (Acute) alcohol intake frequency: 0-2 drinks per day Substance Use Type: marijuana Exam Narrative Exam Narrative: GENERAL: [24] year old patient appears stated age. Well-nourish ed, well-developed patient, in mild distress. HEAD: Atraumatic. Normocephalic. EYES: Pupils equal round and reactive. Extraocular motions intact. No scleral icterus. No injection or drainage. ENT: Nose without bleeding, purulent drainage. Throat without erythema, tonsillar hypertrophy or exudate. Airway patent. NECK: Trachea midline. Non tender CARDIOVASCULAR: Regular rate and rhythm without murmurs, gallops, or rubs. RESPIRATORY: Clear to auscultation. Breath sounds equal bilaterally. No wheezes, rales, or rhonchi. GASTROINTESTINAL: Abdomen soft, mild suprapubic tenderness, nondistended. EXTREMITIES: No edema or joint tenderness. BACK: Nontender without deformity or crepitance. Mild CVA tenderness NEURO: AOx3. SKIN: No rash or erythema of visible areas Initial Vital Signs Initial Vital Signs: Vital Signs Temperature 97.9 F 03/31/20 18:38 Pulse Rate 98 H 03/31/20 18:38 Respiratory Rate 98 H 03/31/20 18:38 Blood Pressure 141/92 H 03/31/20 18:38 Pulse Oximetry 98 03/31/20 18:38 Course Orders Ordered: ED Orders 03/31/20 18:48 Urine Culture Stat Urine Microscopic Stat Discontinued Medications Hydrocodone Bitart/Acetaminophen (Vicodin 5/325 Prepack) 1 bottle MISC SEEINSTR ONE Stop: 03/31/20 20:34 Last Admin: 03/31/20 20:41 Dose: 1 bottle Documented by: ALIZE Cefazolin Sodium (Keflex 250 Mg Prepack) 1 bottle MISC SEEINSTR ONE Stop: 03/31/20 20:34 Last Admin: 03/31/20 20:41 Dose: 1 bottle Documented by: ALIZE Ondansetron HCl (Zofran Odt Prepack) 1 bottle MISC SEEINSTR ONE Stop: 03/31/20 20:34 Last Admin: 03/31/20 20:41 Dose: 1 bottle Documented by: ALIZE Vital Signs Vital signs: Vital Signs - 8 hr 03/31/20 18:38 Temperature 97.9 F Pulse Rate 98 H Respiratory Rate 98 H Blood Pressure 141/92 H Pulse Oximetry 98 MDM - Female Genitourinary Lab Data Labs: Lab Results 03/31/20 Range/Units 18:48 Urine RBC 1-5/hpf (0-5/HPF) Urine WBC 30-100/hpf H (0-5/HPF) Ur Squamous Epith Cells 1-5 /hpf (0-5/HPF) Urine Bacteria Many (>30) H (None) Ur Culture Indicated? Specimen cultured Point of Care Testing Test Results Negative MDM Narrative Medical decision making narrative: Urine very convincing for infection. Normal vitals, reasuring exam. Discussion regarding utlity of labs, IV, etc. and we agree that it is unlikely to change the disposition and we will treat as pyelo. Patient given return precautions and questions answered to her apparent satisfaction Discharge Plan Departure Patient Disposition: Home Clinical Impression: UTI (urinary tract infection) Qualifiers: Urinary tract infection type: acute cystitis Hematuria presence: without hematuria Qualified Code(s): N30.00 - Acute cystitis without hematuria Discharge Date/Time: 03/31/20 20:46 Instructions: DI for Urinary Tract Infection (UTI) Activity Restrictions/Additional Instructions: *You have been diagnosed with [acute urinary tract infection, possible early pyelonephritis] *What to do: *Take medications as directed *Follow up with your primary care provider in 2-3 days, call for an appointment. Let them know you were seen in the Emergency Department and that we ask that you be seen in follow up *Return to ER if you should have any new, worsening or concerning symptoms Prescriptions: New hydrocodone-acetaminophen 5-325 mg tablet 1 tab PO Q4-6H PRN (Reason: pain) Qty: 10 RF: 0 ketorolac 10 mg tablet 10 mg PO Q6H PRN (Reason: pain) Qty: 14 RF: 0 cephalexin [Keflex] 500 mg capsule 500 mg PO QID 7 Days Qty: 28 RF: 0 ondansetron 4 mg tablet,disintegrating 4 mg PO TID-QID PRN (Reason: nausea and vomiting) Qty: 10 RF: 0 No Action levetiracetam 500 mg tablet 750 mg PO BID RF: 0 venlafaxine 37.5 mg capsule,extended release 24hr 37.5 mg PO DAILY RF: 0 prazosin 1 mg capsule 1 mg PO BEDTIME RF: 0 mirtazapine 15 mg tablet 15 mg PO BEDTIME PRN (Reason: Insomnia) RF: 0 albuterol sulfate 90 mcg/actuation HFA aerosol inhaler 2 inh INHALATION Q6HR PRN (Reason: Wheezing) RF: 0 Referrals: Adrianne Nicolas ARNP [Primary Care Provider] -
== END 2020-03-31 20:46 | disposition home or self-care (01) ==
PROVIDERS: Emergency Provider Emergency Medicine; PCP Nurse Practitioner
DX: N30.00 Acute cystitis without hematuria (principal)
CPT/HCPCS: 81015; 81025; 87077; 87086; 87186; 99282; 99283

== ENCOUNTER → 2020-04-12 15:40 | Outpatient (CLI) | payer OTHER, SELFPAY ==
[2020-04-17 05:39] LABS: COVID19 Sendout Not Detected (Not Detected)
== END ==
PROVIDERS: PCP Nurse Practitioner; Visit Provider Physician Assistant
DX: Z11.59 Encounter for screening for other viral diseases (principal)
CPT/HCPCS: 87635

== ENCOUNTER 2020-05-09 16:58 | Emergency (ER) | payer OTHER, SELFPAY ==
[2020-05-09 17:08] VITALS: BP 116/69; PULSE 119; RESP 18; TEMP 36.9; O2SAT 95; BMI 27.8
--- NOTE | 2020-05-09 17:08 | ED.LOWEXIN ---
HPI - Extremity Injury (Lower) <Fabby Carson PA-C - Last Filed: 05/09/20 21:40> General Chief Complaint: Extremity Injury, Lower Stated Complaint: R foot, heard a popping noise Time Seen by Provider: 05/09/20 17:03 Source: patient Mode of arrival: Ambulatory Limitations: no limitations History of Present Illness HPI Narrative: This is a slightly anxious appearing 24-year-old who states she has a history of frequent stress fractures in her feet and receives steroid shots for a foot issue. She presents today with complaints of new acute right ankle and foot pain. She says that she was on her bed which is about 3 ft high and her right foot had fallen asleep, she stepped off of the bed onto the ground and her foot rolled because she could not feel it very well, she heard a popping sound and felt a popping sensation, since then she has been walking on it but she says it is very painful and every time she puts weight on it she feels a popping sensation in her ankle. She has not taken anything for pain, she has been icing it on and off since it happened and mostly staying off of it although she keeps trying to walk on it to see if it will improve. She came to the ED because it seemed like it was not getting better. She denies any numbness or tingling MD complaint: foot injury Onset (ago): hour(s) (4) Injury: Right: foot Type of Injury: blunt and eversion Place: home Severity: moderate Severity scale (1-10): 4 Relieving factors: cold therapy Exacerbating factors: weight bearing, movement and palpation Context: other (Stepped wrong and foot rolled with getting out of bed) Associated symptoms: snap/pop sensation, swelling and able to partially bear weight Other symptoms: none Treatments prior to arrival: cold therapy Related Data Home Medications Medication Instructions Recorded Confirmed levetiracetam 750 mg PO BID 01/31/20 03/31/20 albuterol sulfate 2 inh INHALATION Q6HR PRN 03/31/20 03/31/20 mirtazapine 15 mg PO BEDTIME PRN 03/31/20 03/31/20 prazosin 1 mg PO BEDTIME 03/31/20 03/31/20 venlafaxine 37.5 mg PO DAILY 03/31/20 03/31/20 Previous Rx's Medication Instructions Recorded hydrocodone-acetaminophen 1 tab PO Q4-6H PRN #10 tab 03/31/20 ketorolac 10 mg PO Q6H PRN #14 tab 03/31/20 ondansetron 4 mg PO TID-QID PRN #10 tab 03/31/20 Allergies Allergy/AdvReac Type Severity Reaction Status Date / Time peanut [PEANUT] Allergy Severe ALLERGY TO Verified 05/09/20 17:05 PEANUT BUTTER: HIVES, SOB adhesive tape Allergy Mild ITCHING Verified 05/09/20 17:05 epinephrine [EPINEPHRINE] Allergy Mild HIVES AT Verified 05/09/20 17:05 EPI-PEN INJECTION AREA latex Allergy Mild ITCHING Verified 05/09/20 17:05 darrius [DARRIUS] Allergy Unknown Verified 05/09/20 17:05 tree nut [TREE NUT] Allergy Unknown Verified 05/09/20 17:05 COCONUT Allergy Unknown Uncoded 05/09/20 17:05 TROPICAL FRUITS Allergy Unknown Uncoded 05/09/20 17:05 Review of Systems <Fabby Carson PA-C - Last Filed: 05/09/20 21:40> Review of Systems Narrative: GENERAL: Denies chills, fatigue, malaise, fever, sweats. HEENT: Denies sinus pain, ear pain, sore throat, difficulty swallowing, dizziness. RESPIRATORY: Denies dyspnea, cough, wheezing, hemoptysis, sputum. CARDIOVASCULAR: Denies chest pain, palpitations, orthopnea, edema, GASTROINTESTINAL: Denies nausea, vomiting, abdominal pain, diarrhea, constipation, melena. : Denies dysuria, frequency, incontinence, hematuria, urinary retention. MUSCULOSKELETAL: Positive for pain and swelling of her right ankle on both sides and the top of her foot. Endorses chronic issues with stress fractures of foot stating ?I get them all the time?. Denies other weakness, joint pain, or bony pain SKIN: Denies rash, skin lesions, or other NEUROLOGIC: Denies weakness, headache, numbness, change in speech, confusion, seizures, incoordination. PSYCHIATRIC: Positive for anxiety and PTSD, feels uncomfortable being in the emergency department. No concerning psychosocial issues. 12 point review of systems is negative except for those stated above ROS Unobtainable: All systems reviewed & are unremarkable except as noted in HPI and below Patient History <Fabby Carson PA-C - Last Filed: 05/09/20 21:40> Medical History Anxiety (Acute) Eczema (Acute) History of pyelonephritis (Resolved) PTSD (post-traumatic stress disorder) (Acute) Surgical History Previous section (Acute) Status post appendectomy (Acute) Status post (Acute) Status post tonsillectomy and adenoidectomy (Acute) Social History Smoking Status: Former smoker substance use type: does not use Smoking Status: Former smoker alcohol intake frequency: 0-2 drinks per day Substance Use Type: marijuana Exam <Fabby Carson PA-C - Last Filed: 05/09/20 21:40> Narrative Exam Narrative: GENERAL: 24 year old patient appears stated age. Slightly anxious appearing Well-nourished, well-developed patient, in mild distress. HEAD: Atraumatic. Normocephalic. EYES: Pupils equal round and reactive. Extraocular motions intact. No scleral icterus. No injection or drainage. ENT: Nose without bleeding, purulent drainage. Throat without erythema, tonsillar hypertrophy or exudate. Airway patent. NECK: Trachea midline. Non tender CARDIOVASCULAR: Regular rate and rhythm without murmurs, gallops, or rubs. RESPIRATORY: Clear to auscultation. Breath sounds equal bilaterally. No wheezes, rales, or rhonchi. GASTROINTESTINAL: Abdomen soft, non-tender, nondistended. EXTREMITIES: There is swelling over the bilateral malleoli of the right ankle. There is point tenderness over the bilateral malleoli, there is tenderness over the distal fibula, tenderness over the navicular, no evidence of bruising, swelling consistent with a sprain. Proximal tibia and fibula are nontender range of motion is intact pain with active range of motion at the ankle. Sensation is intact, capillary refill is less than 2 seconds. No other edema or joint tenderness. BACK: Nontender without deformity or crepitance. No flank tenderness. NEURO: AOx3. SKIN: No rash or erythema of visible areas Initial Vital Signs Initial Vital Signs: Vital Signs Temperature 98.5 F 05/09/20 17:08 Pulse Rate 119 H 05/09/20 17:08 Respiratory Rate 18 05/09/20 17:08 Blood Pressure 116/69 05/09/20 17:08 Pulse Oximetry 95 05/09/20 17:08 <Fara López MD - Last Filed: 05/10/20 05:07> Initial Vital Signs Initial Vital Signs: Vital Signs Temperature 98.5 F 05/09/20 17:08 Pulse Rate 119 H 05/09/20 17:08 Respiratory Rate 18 05/09/20 17:08 Blood Pressure 116/69 05/09/20 17:08 Pulse Oximetry 95 05/09/20 17:08 Scores <Fabby Carson PA-C - Last Filed: 05/09/20 21:40> ABCD2 Citation: Lancet. 2006Sep 26;369(9276):283-92. Validation and refinement of scores to predict very early stroke risk after transient ischaemic attack. Gurpreet SC1, Maria Elena PM, Nitza MN, Alberto MF, Jignesh JS, Kellie AL, Juan Luis S. Course <Fabby Carson PA-C - Last Filed: 05/09/20 21:40> Orders Ordered: Discontinued Medications Acetaminophen (Tylenol) 975 mg PO NOW ONE Stop: 05/09/20 17:26 Last Admin: 05/09/20 17:31 Dose: 975 mg Documented by: MINA Vital Signs Vital signs: Vital Signs - 8 hr 05/09/20 17:08 05/09/20 18:44 Temperature 98.5 F Pulse Rate 119 H 93 H Respiratory Rate 18 18 Blood Pressure 116/69 112/70 Pulse Oximetry 95 99 <Fara López MD - Last Filed: 05/10/20 05:07> Orders Ordered: Discontinued Medications Acetaminophen (Tylenol) 975 mg PO NOW ONE Stop: 05/09/20 17:26 Last Admin: 05/09/20 17:31 Dose: 975 mg Documented by: MINA Vital Signs Vital signs: Vital Signs - 8 hr 05/09/20 17:08 05/09/20 18:44 Temperature 98.5 F Pulse Rate 119 H 93 H Respiratory Rate 18 18 Blood Pressure 116/69 112/70 Pulse Oximetry 95 99 MDM - Extremity Injury (Lower) <Fabby Carson PA-C - Last Filed: 05/09/20 21:40> Differential Diagnosis Differential diagnosis: Likely ankle sprain and strain, ankle fracture and other (Foot sprain and strain, foot fracture) Medical Records Attestation: I reviewed the patient's medical records. Imaging Data Extremity x-ray #1: Attestation: I personally reviewed and interpreted this imaging study as follows: Radiologist's Impression: [address] [address] XRay Report Signed Patient: Roseanne Benson MMR#: [id number] : 1995Acct:[id number] Age/Sex: 24 / FDate of Service: 05/09/20 Loc: ED Accession Number: [id number] Procedure: XR foot RT min 3V Ordering Provider: Fabby Carson P.A-C PROCEDURE: XR FOOT RT MIN 3V INDICATIONS: fall, ankle/foot pain and swelling TECHNIQUE: 3 views of the foot were acquired. COMPARISON: [facility], , XR FOOT LT MIN 3V, 01/31/2020, 17:31. FINDINGS: Bones: No fractures or dislocations. No suspicious bony lesions. Soft tissues: No tibiotalar joint effusion. Achilles tendon appears normal. IMPRESSION: Right foot without acute osseous abnormalities or malalignment. If there is persistent clinical concern for occult fracture given adequate mechanism of injury, consider repeat imaging in 10-14 days. Dictated by: David Avila M.D. on 05/09/2020 at 18:02 Approved by: David Avila M.D. on 05/09/2020 at 18:03 Extremity x-ray #2: Attestation: I personally reviewed and interpreted this imaging study as follows: Radiologist's Impression: [address] [address] XRay Report Signed Patient: Roseanne Benson MMR#: [id number] : 1995Acct:[id number] Age/Sex: 24 / FDate of Service: 05/09/20 Loc: ED Accession Number: [id number] Procedure: XR ankle RT min 3V Ordering Provider: Fabby Carson P.A-C PROCEDURE: XR ANKLE RT MIN 3V INDICATIONS: fall, pain swelling, bi-malleolar point tenderness TECHNIQUE: 3 views of the ankle were acquired. COMPARISON: [facility], , XR ANKLE RT MIN 3V, 08/15/2018, 20:42. FINDINGS: Bones: No fractures or dislocations. Ankle mortise is normally aligned. No suspicious bony lesions. Soft tissues: Minimal bimalleolar soft tissue swelling. No tibiotalar joint effusion. Achilles tendon appears normal. IMPRESSION: Minimal bimalleolar soft tissue swelling without fracture or dislocation. If there is persistent clinical concern for occult fracture given adequate mechanism of injury, consider repeat imaging in 10-14 days. Dictated by: David Avila M.D. on 05/09/2020 at 18:00 Approved by: David Avila M.D. on 05/09/2020 at 18:02 [facility] Narrative Medical decision making narrative: This is a slightly anxious appearing 24-year-old with pertinent history of chronic bilateral foot pain who presents complaining of right ankle pain with popping that has been present since she fell when getting out of bed today when her foot fell asleep. She used ice and was able to bear weight but with pain. Labs were not obtained, exam is consistent with a sprain strain however she did have malleolar tenderness and ankle x-rays were obtained in addition to foot x-rays. These were negative for evidence of fracture, she was provided with an air splint for her ankle and crutches. Advised Tylenol and ibuprofen for pain. Discussed importance of RI CE and staying off of her foot as much as possible, discussed follow-up with either her primary care or Orthopedics. Emergency return precautions provided, all questions answered. Discharge Plan Departure Patient Disposition: Home Clinical Impression: Ankle sprain and strain, Acute pain of right foot Discharge Date/Time: 05/09/20 18:45 Instructions: DI for Ankle Sprain, How To Perform RICE (Rest, Ice, Compress, Elevate) Activity Restrictions/Additional Instructions: Thank you for allowing us to be part of your care in the emergency department today. There was no evidence of fracture on her x-rays but you do have swelling in your injury is consistent with a sprain and strain. I want you to use the crutches for at least the next week, as well as the splint that was provided and try to stay off of your foot as much as possible. Sprains and strains to best if you make sure not to overuse them. When you can please try to elevate your foot, you can also apply an Freeman wrap for compression underneath the splint or when you are at rest and you do not have the splint on. You can also do ice on and off for the next 48 hours. You can follow-up with your primary care provider and I would like you to do that in the next week, but I am also including information on our orthopedic provider, if you are not having any improvement even with the care suggested he may want to consider calling them and possibly being evaluated by one of the orthopedic providers there as well. Sprains usually do take about 3 weeks to begin healing well enough to feel normal. There is no evidence of an emergent or life threatening illness at this time, but follow up with your doctor in 1-2 days is recommended nonetheless to continue to rule out serious underlying causes of your symptoms. Please call the office for an appointment. Please return to the Emergency Department for any worsening or persistent symptoms. Please take medications as directed. Prescriptions: No Action levetiracetam 500 mg tablet 750 mg PO BID RF: 0 venlafaxine 37.5 mg capsule,extended release 24hr 37.5 mg PO DAILY RF: 0 prazosin 1 mg capsule 1 mg PO BEDTIME RF: 0 mirtazapine 15 mg tablet 15 mg PO BEDTIME PRN (Reason: Insomnia) RF: 0 albuterol sulfate 90 mcg/actuation HFA aerosol inhaler 2 inh INHALATION Q6HR PRN (Reason: Wheezing) RF: 0 hydrocodone-acetaminophen 5-325 mg tablet 1 tab PO Q4-6H PRN (Reason: pain) Qty: 10 RF: 0 ketorolac 10 mg tablet 10 mg PO Q6H PRN (Reason: pain) Qty: 14 RF: 0 ondansetron 4 mg tablet,disintegrating 4 mg PO TID-QID PRN (Reason: nausea and vomiting) Qty: 10 RF: 0 Referrals: Adrianne Nicolas ARNP [Primary Care Provider] - Jenelle Juarez MD [Physician] - <Fara López MD - Last Filed: 05/10/20 05:07> Cosign ED Attending Yanelisature Attestation: I was immediately available in the department for consultation throughout this patient's visit. I agree with documentation as above. Fara López MD
--- NOTE | 2020-05-09 17:25 | DI.RAD.S_ITS ---
PROCEDURE: XR ANKLE RT MIN 3V INDICATIONS: fall, pain swelling, bi-malleolar point tenderness TECHNIQUE: 3 views of the ankle were acquired. COMPARISON: [facility], CR, XR ANKLE RT MIN 3V, 08/15/2018, 20:42. FINDINGS: Bones: No fractures or dislocations. Ankle mortise is normally aligned. No suspicious bony lesions. Soft tissues: Minimal bimalleolar soft tissue swelling. No tibiotalar joint effusion. Achilles tendon appears normal. IMPRESSION: Minimal bimalleolar soft tissue swelling without fracture or dislocation. If there is persistent clinical concern for occult fracture given adequate mechanism of injury, consider repeat imaging in 10-14 days. Dictated by: David Avila M.D. on 05/09/2020 at 18:00 Approved by: David Avila M.D. on 05/09/2020 at 18:02
--- NOTE | 2020-05-09 17:26 | DI.RAD.S_ITS ---
PROCEDURE: XR FOOT RT MIN 3V INDICATIONS: fall, ankle/foot pain and swelling TECHNIQUE: 3 views of the foot were acquired. COMPARISON: [facility], CR, XR FOOT LT MIN 3V, 01/31/2020, 17:31. FINDINGS: Bones: No fractures or dislocations. No suspicious bony lesions. Soft tissues: No tibiotalar joint effusion. Achilles tendon appears normal. IMPRESSION: Right foot without acute osseous abnormalities or malalignment. If there is persistent clinical concern for occult fracture given adequate mechanism of injury, consider repeat imaging in 10-14 days. Dictated by: David Avila M.D. on 05/09/2020 at 18:02 Approved by: David Avila M.D. on 05/09/2020 at 18:03
[2020-05-09] MEDS: ACETAMINOPHEN 325 MG TABLET 975 MG PO (17:31)
[2020-05-09 18:44] VITALS: BP 112/70; PULSE 93; RESP 18; O2SAT 99
== END 2020-05-09 18:45 | disposition home or self-care (01) ==
PROVIDERS: Emergency Provider Student in an Organized Health Care Education/Training Program; PCP Nurse Practitioner
DX: S93.401A Sprain of unspecified ligament of right ankle, initial encounter (principal); S96.911A Strain of unspecified muscle and tendon at ankle and foot level, right foot, initial encounter; W06.XXXA Fall from bed, initial encounter
CPT/HCPCS: 29540; 73610; 73630; 99283